=== PATIENT | female | born 1995 | race Caucasian/White ===

== ENCOUNTER 2019-03-06 10:27 | Emergency (ER) | payer OTHER ==
[2019-03-06] MEDS ORDERED: KETOROLAC 30 MG/ML 1 ML VIAL IVP STA (10:56)
[2019-03-06] MEDS ORDERED: SODIUM CHLORIDE 0.9% 1,000 ML IV STA (10:56)
[2019-03-06] MEDS ORDERED: ONDANSETRON 4 MG/2 ML VIAL IVP STA (10:56)
--- NOTE | 2019-03-06 11:01 | ED ---
Abdominal Pain HPI - General Chief Complaint: Abdominal Pain Stated Complaint: abdominal pain Time Seen by Provider: 03/06/19 10:39 Source: patient Mode of arrival: ambulatory Limitations: no limitations - History of Present Illness Initial Comments: Patient is a 23-year-old female presenting to emergency Department with complaints of abdominal pain for 2 days. Patient states she has had diarrhea for the past 3 days as well as intermittent abdominal pain she describes as cramping and sometimes sharp in nature. Patient states she's had a decreased appetite for the past 2 days as well. She admits to a fever yesterday of 100. Patient states she went to urgent care today who sent her to the ER for further evaluation. Patient denies history of abdominal surgeries. Patient does admit to nausea, no vomiting. Patient denies chest pain, shortness of breath, cough. Patient denies being sexually active. She does not drink alcohol. She denies urinary complaints. Patient has no other complaints at this time. Upon arrival to the ER, her vital signs are stable. - Related Data Previous Rx's Medication Instructions Recorded Ondansetron Odt [Zofran Odt] 4 mg PO Q8HR PRN #10 tab 03/06/19 Allergies Allergy/AdvReac Type Severity Reaction Status Date / Time No Known Allergies Allergy Verified 03/06/19 10:33 Review of Systems ROS Statement: Those systems with pertinent positive or pertinent negative responses have been documented in the HPI. ROS Other: All systems not noted in ROS Statement are negative. Past Medical History Past Medical History: No Reported History History of Any Multi-Drug Resistant Organisms: None Reported Past Surgical History: No Surgical Hx Reported Past Psychological History: No Psychological Hx Reported Smoking Status: Never smoker Past Alcohol Use History: None Reported Past Drug Use History: None Reported General Exam - General Exam Comments Initial Comments: GENERAL: Well-appearing, well-nourished and in no acute distress. HEAD: Atraumatic, normocephalic. EYES: Pupils equal round and reactive to light, extraocular movements intact, sclera anicteric, conjunctiva are normal. ENT: TMs normal, nares patent, oropharynx clear without exudates. Moist mucous membranes. NECK: Normal range of motion, supple without lymphadenopathy or JVD. LUNGS: Breath sounds clear to auscultation bilaterally and equal. No wheezes rales or rhonchi. HEART: Regular rate and rhythm without murmurs, rubs or gallops. ABDOMEN: Tender to palpation on umbilical area as well as RUQ. Soft, normoactive bowel sounds. No guarding, no rebound. No masses appreciated. : Deferred EXTREMITIES: Normal range of motion, no pitting or edema. No clubbing or cyanosis. NEUROLOGICAL: Normal speech, normal gait. PSYCH: Normal mood, normal affect. SKIN: Warm, Dry, normal turgor, no rashes or lesions noted. Limitations: no limitations Course Vital Signs 03/06/19 03/06/19 10:31 14:03 Temperature 98.2 F 98.0 F Pulse Rate 71 81 Respiratory 18 16 Rate Blood Pressure 146/98 120/74 O2 Sat by Pulse 98 99 Oximetry Medical Decision Making - Medical Decision Making Patient is a 23-year-old female presenting with abdominal pain, n/v/d 2 days. Vital signs are stable, afebrile. On exam patient has umbilical and right upper quadrant tenderness. Lab work reveals slight leukocytosis 13.4, elevation AST and ALT at 117/128. UA is within normal limits, hCG is negative. KUB shows no acute abnormalities. Ultrasound gallbladder was ordered and shows hepatomegaly, no signs of gallstones, no ductal dilation. Patient was given Toradol, fluids, Zofran reports improvement in her symptoms. I discussed these findings with the patient. Acute hepatitis panel is pending at this time. Patient will continue with increase fluid intake and will be given Zofran as needed for nausea. Patient needs to follow-up with PCP or GI for repeat labs. Patient agrees with this plan of care. Referrals were given for both. Patient is stable for discharge at this time. Return parameters were discussed with the patient she verbalized understanding. Case discussed with Dr. Moore. - Lab Data Result diagrams: 03/06/19 11:22 03/06/19 11:22 Lab Results 03/06/19 03/06/19 03/06/19 Range/Units 11:22 11:22 11:22 WBC 13.4 H (3.8-10.6) k/uL RBC 4.81 (3.80-5.40) m/uL Hgb 13.2 (11.4-16.0) gm/dL Hct 39.4 (34.0-46.0) % MCV 81.9 (80.0-100.0) fL MCH 27.5 (25.0-35.0) pg MCHC 33.5 (31.0-37.0) g/dL RDW 13.1 (11.5-15.5) % Plt Count 315 (150-450) k/uL Neutrophils % 73 % Lymphocytes % 19 % Monocytes % 4 % Eosinophils % 1 % Basophils % 0 % Neutrophils # 9.8 H (1.3-7.7) k/uL Lymphocytes # 2.5 (1.0-4.8) k/uL Monocytes # 0.6 (0-1.0) k/uL Eosinophils # 0.2 (0-0.7) k/uL Basophils # 0.0 (0-0.2) k/uL Sodium 139 (137-145) mmol/L Potassium 3.6 (3.5-5.1) mmol/L Chloride 105 (98-107) mmol/L Carbon Dioxide 26 (22-30) mmol/L Anion Gap 8 mmol/L BUN 7 (7-17) mg/dL Creatinine 0.69 (0.52-1.04) mg/dL Est GFR (CKD-EPI)AfAm >90 (>60 ml/min/1.73 sqM) Est GFR (CKD-EPI)NonAf >90 (>60 ml/min/1.73 sqM) Glucose 90 (74-99) mg/dL Plasma Lactic Acid Mamadou 0.7 (0.7-2.0) mmol/L Calcium 9.2 (8.4-10.2) mg/dL Total Bilirubin 0.4 (0.2-1.3) mg/dL AST 117 H (14-36) U/L ALT 128 H (4-34) U/L Alkaline Phosphatase 116 (38-126) U/L Total Protein 6.9 (6.3-8.2) g/dL Albumin 3.9 (3.5-5.0) g/dL Amylase 42 (30-110) U/L Lipase 28 (23-300) U/L Urine Color Urine Appearance (Clear) Urine pH (5.0-8.0) Ur Specific [place] (1.001-1.035) Urine Protein (Negative) Urine Glucose (UA) (Negative) Urine Ketones (Negative) Urine Blood (Negative) Urine Nitrite (Negative) Urine Bilirubin (Negative) Urine Urobilinogen (<2.0) mg/dL Ur Leukocyte Esterase (Negative) Urine RBC (0-5) /hpf Urine WBC (0-5) /hpf Ur Squamous Epith Cells (0-4) /hpf Urine Bacteria (None) /hpf Urine Mucus (None) /hpf Urine HCG, Qual (Not Detectd) 03/06/19 03/06/19 Range/Units 11:25 11:25 WBC (3.8-10.6) k/uL RBC (3.80-5.40) m/uL Hgb (11.4-16.0) gm/dL Hct (34.0-46.0) % MCV (80.0-100.0) fL MCH (25.0-35.0) pg MCHC (31.0-37.0) g/dL RDW (11.5-15.5) % Plt Count (150-450) k/uL Neutrophils % % Lymphocytes % % Monocytes % % Eosinophils % % Basophils % % Neutrophils # (1.3-7.7) k/uL Lymphocytes # (1.0-4.8) k/uL Monocytes # (0-1.0) k/uL Eosinophils # (0-0.7) k/uL Basophils # (0-0.2) k/uL Sodium (137-145) mmol/L Potassium (3.5-5.1) mmol/L Chloride (98-107) mmol/L Carbon Dioxide (22-30) mmol/L Anion Gap mmol/L BUN (7-17) mg/dL Creatinine (0.52-1.04) mg/dL Est GFR (CKD-EPI)AfAm (>60 ml/min/1.73 sqM) Est GFR (CKD-EPI)NonAf (>60 ml/min/1.73 sqM) Glucose (74-99) mg/dL Plasma Lactic Acid Mamadou (0.7-2.0) mmol/L Calcium (8.4-10.2) mg/dL Total Bilirubin (0.2-1.3) mg/dL AST (14-36) U/L ALT (4-34) U/L Alkaline Phosphatase (38-126) U/L Total Protein (6.3-8.2) g/dL Albumin (3.5-5.0) g/dL Amylase (30-110) U/L Lipase (23-300) U/L Urine Color Yellow Urine Appearance Cloudy H (Clear) Urine pH 5.5 (5.0-8.0) Ur Specific [place] 1.019 (1.001-1.035) Urine Protein Trace H (Negative) Urine Glucose (UA) Negative (Negative) Urine Ketones Negative (Negative) Urine Blood Negative (Negative) Urine Nitrite Negative (Negative) Urine Bilirubin Negative (Negative) Urine Urobilinogen <2.0 (<2.0) mg/dL Ur Leukocyte Esterase Moderate H (Negative) Urine RBC 4 (0-5) /hpf Urine WBC 8 H (0-5) /hpf Ur Squamous Epith Cells 7 H (0-4) /hpf Urine Bacteria Rare H (None) /hpf Urine Mucus Many H (None) /hpf Urine HCG, Qual Not Detected (Not Detectd) Disposition Clinical Impression: Abdominal pain, Elevated liver enzymes Disposition: HOME SELF-CARE Condition: Stable Instructions (If sedation given, give patient instructions): Abdominal Pain (ED) Additional Instructions: Please return to the Emergency Department if symptoms worsen or any other concerns. Follow-up with PCP/GI for repeat lab work. Zofran as needed for nausea. Increase fluid intake. Prescriptions: Ondansetron Odt [Zofran Odt] 4 mg PO Q8HR PRN #10 tab PRN Reason: Nausea Is patient prescribed a controlled substance at d/c from ED?: No Referrals: None,Stated [Primary Care Provider] - 1-2 days Macy Martinez MD [REFERRING] - 1-2 days Yoshi Jon MD [STAFF PHYSICIAN] - 1-2 days
[2019-03-06 11:38] LABS: Basophils % (A) 0 %; Eosinophils # (A) 0.2 k/uL (0-0.7); Eosinophils % (A) 1 %; HCT 39.4 % (34.0-46.0); HGB 13.2 gm/dL (11.4-16.0); Lymphocytes # (A) 2.5 k/uL (1.0-4.8); Lymphocytes % (A) 19 %; MCH 27.5 pg (25.0-35.0); MCHC 33.5 g/dL (31.0-37.0); MCV 81.9 fL (80.0-100.0); Mean Platelet Volume 7.7; Monocytes # (A) 0.6 k/uL (0-1.0); Monocytes % (A) 4 %; Neutrophils # (A) 9.8 k/uL (1.3-7.7); Neutrophils % (A) 73 %; Platelet Count 315 k/uL (150-450); RBC 4.81 m/uL (3.80-5.40); RDW 13.1 % (11.5-15.5); WBC 13.4 k/uL (3.8-10.6)
[2019-03-06 11:40] LABS: Appearance,Urine Cloudy (Clear); Bacteria,Urine Rare /hpf; Bilirubin,Urine Negative (Negative); Blood,Urine Negative (Negative); Color,Urine Yellow; Glucose,Urine (UA) Negative (Negative); Ketones,Urine Negative (Negative); Leukocyte Esterase,Urine Moderate (Negative); Mucus,Urine Many /hpf; Nitrite,Urine Negative (Negative); PH, Urine 5.5 (5.0-8.0); Protein,Urine Trace (Negative); RBC,Urine 4 /hpf (0-5); Specific Gravity,Urine 1.019 (1.001-1.035); Squamous Epithelial Cell,Urine 7 /hpf (0-4); Urobilinogen,Urine <2.0 mg/dL (<2.0); WBC,Urine 8 /hpf (0-5)
[2019-03-06 11:53] LABS: ALT 128 U/L (4-34); AST 117 U/L (14-36); African American GFR (CKD) >90 (>60 ml/min/1.73 sqM); Albumin 3.9 g/dL (3.5-5.0); Alkaline Phosphatase 116 U/L (38-126); Amylase 42 U/L (30-110); Anion Gap 8 mmol/L; Blood Urea Nitrogen 7 mg/dL (7-17); Calcium 9.2 mg/dL (8.4-10.2); Carbon Dioxide 26 mmol/L (22-30); Chloride 105 mmol/L (98-107); Glucose 90 mg/dL (74-99); Non-African American GFR(CKD) >90 (>60 ml/min/1.73 sqM); Potassium 3.6 mmol/L (3.5-5.1); Sodium 139 mmol/L (137-145); Total Bilirubin 0.4 mg/dL (0.2-1.3); Total Protein 6.9 g/dL (6.3-8.2)
--- NOTE | 2019-03-06 12:11 | XR ---
EXAMINATION TYPE: XR KUB DATE OF EXAM: 03/06/2019 12:03 PM CLINICAL HISTORY: Abdominal pain for 3 days. TECHNIQUE: Two Upright KUB images of the abdomen are obtained. COMPARISON: Abdominal x-ray 1997. FINDINGS: Some paucity of bowel gas. Scattered gas in nondistended stomach as well as small and large bowel loops throughout the abdomen and pelvis. There is no visceromegaly, pneumoperitoneum, or abnor mal calcification appreciated. The lung bases are clear. Slight levoconvex scoliotic curvature center ed at L3 level. IMPRESSION: Overall nonspecific strongly favor nonobstructive bowel gas pattern.
--- NOTE | 2019-03-06 13:08 | US ---
EXAMINATION TYPE: US gallbladder DATE OF EXAM: 03/06/2019 COMPARISON: NONE CLINICAL HISTORY: right abdominal pain. pain and diahhrea EXAM MEASUREMENTS: Liver Length: 20.6 cm Gallbladder Wall: .3 cm CBD: .3 cm Right Kidney: 9.4 x 4.3 x 5.2 cm Pancreas: Obscured by bowel gas Liver: Increased attenuation hepatomegaly 20.6cm. Gallbladder: wnl Evidence for sonographic Porter's sign: No CBD: wnl Right Kidney: wnl Hepatomegaly with heterogeneous hyperechoic liver. Evaluation for focal masses suboptimal. No ductal dilatation. Gallbladder shows no shadowing gallstones. IMPRESSION: Hepatomegaly and diffuse fatty infiltration of liver. No acute findings are evident. Subo ptimal evaluation of pancreas noted.
[2019-03-06 14:04] VITALS: BP 120/74; PULSE 81; RESP 16; TEMP 98
== END 2019-03-06 14:04 | disposition home or self-care (01) ==
LOC: EC 10:27
DX: R74.8 Abnormal levels of other serum enzymes (principal); R10.9 Unspecified abdominal pain; D72.829 Elevated white blood cell count, unspecified; R74.0 Nonspecific elevation of levels of transaminase and lactic acid dehydrogenase [LDH]; R16.0 Hepatomegaly, not elsewhere classified; R11.0 Nausea; R63.8 Other symptoms and signs concerning food and fluid intake
CPT/HCPCS: 36415; 80053; 82150; 83605; 83690; 85025; 81001; 81025; 74018; 76705; 99284; 96374; 96375; 96361; J2405; J1885

== ENCOUNTER 2021-01-01 13:08 | Emergency (ER) | payer OTHER ==
[2021-01-01 15:36] VITALS: TEMP 98.4
[2021-01-01] MEDS ORDERED: IPRATROPIUM-ALBUTEROL 3 ML NEB INHALATION STA (16:41)
[2021-01-01] MEDS ORDERED: ALBUTEROL HFA INHALER INHALATION STA (16:41)
[2021-01-01] MEDS ORDERED: methylPREDNISolone SOD SUCCI 125 MG/2 ML VIAL IV STA (16:41)
[2021-01-01 17:16] LABS: HCG,Qualitative Serum Detected
--- NOTE | 2021-01-01 17:16 | ED ---
General Adult HPI - General Chief complaint: Shortness of Breath Stated complaint: [place] Time Seen by Provider: 01/01/21 15:49 Source: patient, family, RN notes reviewed, old records reviewed Mode of arrival: ambulatory Limitations: no limitations - History of Present Illness Initial comments: I evaluated the patient when she was placed in a room. Patient is a 25-year-old female with no significant past medical history who presents emergency Department complaining of a nonproductive cough as well as wheezing with intermittent shortness of breath over the last 3 days. She denies any sick contacts. She was not vaccinated for COVID-19. Denies any abdominal pain, nausea, vomiting. Denies any diarrhea. Denies any urinary complaints. Does endorse having an episode of vaginal bleeding earlier today. She states it is possible she is . She denies any vaginal discharge otherwise her concern for STI's. She presents emergency department over concern for possible viral syndrome. She denies any chest pain, fevers, sick contacts. Denies any headache, dizziness otherwise. His no other acute complaints at this time. Patient presents over concern for possible upper respiratory infection. - Related Data Previous Rx's Medication Instructions Recorded Ondansetron Odt [Zofran Odt] 4 mg PO Q8HR PRN #10 tab 03/06/19 Albuterol Inhaler [Ventolin Hfa 1 puff INHALATION RT-TID #8 gm 01/01/21 Inhaler] Vit,Calc78/Iron/Folic 1 each PO DAILY 30 Days #30 tablet 01/01/21 [Pretab 29 mg-1 mg Tablet] predniSONE [Deltasone] 40 mg PO DAILY 5 Days #10 tab 01/01/21 Allergies Allergy/AdvReac Type Severity Reaction Status Date / Time No Known Allergies Allergy Verified 01/01/21 15:34 Review of Systems ROS Statement: Those systems with pertinent positive or pertinent negative responses have been documented in the HPI. Review of Systems: CONST: Denies fever EYES: Denies blurry vision ENT: Denies nasal congestion C/V: Denies Chest pain RESP: Endorses cough, wheezing GI: Denies abdominal pain : Endorses episode of vaginal bleeding SKIN: Denies rash. MSK: Denies joint pain. NEURO: Denies headache ROS Other: All systems not noted in ROS Statement are negative. Past Medical History Past Medical History: No Reported History History of Any Multi-Drug Resistant Organisms: None Reported Past Surgical History: No Surgical Hx Reported Past Psychological History: No Psychological Hx Reported Smoking Status: Never smoker Past Alcohol Use History: None Reported Past Drug Use History: None Reported General Exam - General Exam Comments Initial Comments: General: Appears in no acute distress. HEAD: Normal with no signs of head trauma. EYES: PERRLA, EOMI, conjunctiva normal, no discharge. Pupils are 3 mm and equal bilaterally. ENT: Hearing grossly intact, normal oropharynx. RESPIRATORY: Patient has bilateral end expiratory wheezing without any obvious rales or rhonchi. C/V: Regular rate and rhythm. S1 and S2 auscultated, no edema, peripheral pulses 2+ and intact throughout ABD: Abd is soft, nontender, nondistended EXT: Normal range of motion, no obvious deformity SKIN: No rashes or lesions observed on exposed skin. NEURO: Alert and oriented 4. Limitations: no limitations Course Vital Signs 01/01/21 01/01/21 01/01/21 15:34 16:35 19:51 Temperature 98.4 F Pulse Rate 89 82 86 Respiratory 18 22 20 Rate Blood Pressure 156/81 123/46 141/73 O2 Sat by Pulse 95 99 96 Oximetry Medical Decision Making - Medical Decision Making Based on the patient's presentation and physical exam, I would like to admit assess if the patient is . She did not some vaginal bleeding therefore we will also check basic laboratory studies including CBC. Type and screen will be obtained and sent. She is no abdominal pain at this time. Patient's respiratory exam revealed wheezing. She has not chest pain. We will swab her for Covid, flu, RSV and provide her with prednisone as well as a breathing treatment while here in the department and assess for improvement. She is not hypoxic at this time. Patient was in agreement this plan. Patient's chest x-ray revealed no acute cardiopulmonary process. Laboratory studies were remarkable for a mildly elevated leukocytosis of 15.6. Blood to lites are unremarkable. Patient is , and quantitative beta hCG was nearly 8000. Flu, RSV, Covid is negative.Patient's blood type is O+ and therefore she does not require RhoGAM. Due to patient being as well as her vaginal bleeding, we will obtain a pelvic ultrasound to assess for definitive IUP. On reevaluation, patient's breathing is improved wheezing is improved. She states she feels better. I informed her the results of her initial laboratory studies and that she is likely expressing a viral syndrome probably causing his bronchospastic reaction without any history of asthma or COPD. She is a never smoker. She was in agreement this plan. Patient's pelvic ultrasound revealed a intrauterine gestational sac with yolk sac that corresponds to 5 weeks 4 days. Recommend follow-up exam to confirm a living fetus. I informed the patient results of her imaging. We discussed the need for follow-up with [employer], and she states she has one already that she will follow up with. She otherwise is stable at this time. I do believe it is safer to be discharged home. She was in agreement this plan. I discussed she is likely experiencing a threatened miscarriage/ at this time. I will provide the patient with a prescription for vitamins, albuterol inhaler, prednisone 40 mg for 5 days daily. I instructed the patient to follow up with their PCP in the next 3 days . I explained that the patient should return to the emergency department if they experience any worsening symptoms. Strict return precautions were discussed with the patient. The patient expressed understanding of these instructions. I answered all questions that the patient had. The patient was discharged home in good condition with their prescriptions and follow up information. - Lab Data Result diagrams: 01/01/21 18:57 01/01/21 16:50 Lab Results 01/01/21 01/01/21 01/01/21 Range/Units 16:50 16:50 17:54 WBC (3.8-10.6) k/uL RBC (3.80-5.40) m/uL Hgb (11.4-16.0) gm/dL Hct (34.0-46.0) % MCV (80.0-100.0) fL MCH (25.0-35.0) pg MCHC (31.0-37.0) g/dL RDW (11.5-15.5) % Plt Count (150-450) k/uL MPV Neutrophils % % Lymphocytes % % Monocytes % % Eosinophils % % Basophils % % Neutrophils # (1.3-7.7) k/uL Lymphocytes # (1.0-4.8) k/uL Monocytes # (0-1.0) k/uL Eosinophils # (0-0.7) k/uL Basophils # (0-0.2) k/uL Sodium 135 L (137-145) mmol/L Potassium 3.9 (3.5-5.1) mmol/L Chloride 104 (98-107) mmol/L Carbon Dioxide 22 (22-30) mmol/L Anion Gap 9 mmol/L BUN 13 (7-17) mg/dL Creatinine 0.50 L (0.52-1.04) mg/dL Est GFR (CKD-EPI)AfAm >90 (>60 ml/min/1.73 sqM) Est GFR (CKD-EPI)NonAf >90 (>60 ml/min/1.73 sqM) Glucose 106 H (74-99) mg/dL Calcium 9.0 (8.4-10.2) mg/dL Magnesium 1.9 (1.6-2.3) mg/dL Total Bilirubin 0.2 (0.2-1.3) mg/dL AST 29 (14-36) U/L ALT 23 (4-34) U/L Alkaline Phosphatase 113 (38-126) U/L Total Protein 7.0 (6.3-8.2) g/dL Albumin 3.8 (3.5-5.0) g/dL HCG, Qual Detected HCG, Quant 7971.5 mIU/mL Influenza Type A (PCR) Not Detected (Not Detectd) Influenza Type B (PCR) Not Detected (Not Detectd) RSV (PCR) Not Detected (Not Detectd) SARS-CoV-2 (PCR) Not Detected (Not Detectd) Blood Type Blood Type Recheck Bld Type Recheck Status Antibody Screen Spec Expiration Date 01/01/21 01/01/21 Range/Units 18:57 19:04 WBC 18.6 H (3.8-10.6) k/uL RBC 4.41 (3.80-5.40) m/uL Hgb 12.1 (11.4-16.0) gm/dL Hct 37.6 (34.0-46.0) % MCV 85.2 (80.0-100.0) fL MCH 27.5 (25.0-35.0) pg MCHC 32.3 (31.0-37.0) g/dL RDW 14.7 (11.5-15.5) % Plt Count 254 (150-450) k/uL MPV 8.4 Neutrophils % 79 % Lymphocytes % 13 % Monocytes % 4 % Eosinophils % 2 % Basophils % 0 % Neutrophils # 14.7 H (1.3-7.7) k/uL Lymphocytes # 2.3 (1.0-4.8) k/uL Monocytes # 0.8 (0-1.0) k/uL Eosinophils # 0.4 (0-0.7) k/uL Basophils # 0.1 (0-0.2) k/uL Sodium (137-145) mmol/L Potassium (3.5-5.1) mmol/L Chloride (98-107) mmol/L Carbon Dioxide (22-30) mmol/L Anion Gap mmol/L BUN (7-17) mg/dL Creatinine (0.52-1.04) mg/dL Est GFR (CKD-EPI)AfAm (>60 ml/min/1.73 sqM) Est GFR (CKD-EPI)NonAf (>60 ml/min/1.73 sqM) Glucose (74-99) mg/dL Calcium (8.4-10.2) mg/dL Magnesium (1.6-2.3) mg/dL Total Bilirubin (0.2-1.3) mg/dL AST (14-36) U/L ALT (4-34) U/L Alkaline Phosphatase (38-126) U/L Total Protein (6.3-8.2) g/dL Albumin (3.5-5.0) g/dL HCG, Qual HCG, Quant mIU/mL Influenza Type A (PCR) (Not Detectd) Influenza Type B (PCR) (Not Detectd) RSV (PCR) (Not Detectd) SARS-CoV-2 (PCR) (Not Detectd) Blood Type O Positive Blood Type Recheck No Previous Record Bld Type Recheck Status CABO Indicated Antibody Screen NEGATIVE Spec Expiration Date 01/04/20212303 - EKG Data -: EKG Interpreted by Me EKG Comments: 12-lead Electrocardiogram Interpretation Note EKG was reviewed and interpreted by myself. 12-lead ECG performed at 1711 is in terpreted by me as revealing normal sinus rhythm at a rate of 90 beats per minute. [place] is normal. AL interval is 118 ms, QRS duration is 80 ms, QTc is 452 ms.. There were no ST or T wave abnormalities to suggest myocardial ischemia or injury. R wave progression across the precordium was satisfactory. By my interpretation this EKG is non-diagnostic for acute ischemia. Disposition Clinical Impression: Threatened , Acute viral syndrome, Bronchospasm, acute Disposition: HOME SELF-CARE Condition: Fair Instructions (If sedation given, give patient instructions): Threatened Miscarriage (ED) Prescriptions: predniSONE [Deltasone] 40 mg PO DAILY 5 Days #10 tab Vit,Calc78/Iron/Folic [Pretab 29 mg-1 mg Tablet] 1 each PO DAILY 30 Days #30 tablet Albuterol Inhaler [Ventolin Hfa Inhaler] 1 puff INHALATION RT-TID #8 gm Is patient prescribed a controlled substance at d/c from ED?: No Referrals: Geovanni Sanabria MD [Primary Care Provider] - 1-2 days
[2021-01-01 17:18] LABS: ALT 23 U/L (4-34); AST 29 U/L (14-36); African American GFR (CKD) >90 (>60 ml/min/1.73 sqM); Albumin 3.8 g/dL (3.5-5.0); Alkaline Phosphatase 113 U/L (38-126); Anion Gap 9 mmol/L; Blood Urea Nitrogen 13 mg/dL (7-17); Carbon Dioxide 22 mmol/L (22-30); Chloride 104 mmol/L (98-107); Glucose 106 mg/dL (74-99); Magnesium 1.9 mg/dL (1.6-2.3); Non-African American GFR(CKD) >90 (>60 ml/min/1.73 sqM); Potassium 3.9 mmol/L (3.5-5.1); Sodium 135 mmol/L (137-145); Total Bilirubin 0.2 mg/dL (0.2-1.3)
--- NOTE | 2021-01-01 18:07 | XR ---
EXAMINATION TYPE: XR chest 2V DATE OF EXAM: 01/01/2021 COMPARISON: NONE HISTORY: Short of breath TECHNIQUE: 2 views FINDINGS: Heart and mediastinum are normal. Lungs are clear. Diaphragm is normal. Bony thorax appears normal. IMPRESSION: Normal chest.
[2021-01-01 19:02] LABS: Basophils # (A) 0.1 k/uL (0-0.2); Basophils % (A) 0 %; Eosinophils # (A) 0.4 k/uL (0-0.7); Eosinophils % (A) 2 %; HCT 37.6 % (34.0-46.0); HGB 12.1 gm/dL (11.4-16.0); Lymphocytes # (A) 2.3 k/uL (1.0-4.8); Lymphocytes % (A) 13 %; MCH 27.5 pg (25.0-35.0); MCHC 32.3 g/dL (31.0-37.0); MCV 85.2 fL (80.0-100.0); Mean Platelet Volume 8.4; Monocytes # (A) 0.8 k/uL (0-1.0); Monocytes % (A) 4 %; Neutrophils # (A) 14.7 k/uL (1.3-7.7); Neutrophils % (A) 79 %; Platelet Count 254 k/uL (150-450); RBC 4.41 m/uL (3.80-5.40); RDW 14.7 % (11.5-15.5); WBC 18.6 k/uL (3.8-10.6)
[2021-01-01 19:52] VITALS: BP 141/73; PULSE 86; RESP 20
--- NOTE | 2021-01-01 20:59 | US ---
EXAMINATION TYPE: Transabdominal DATE OF EXAM: 01/01/2021 8:18 PM COMPARISON: NONE CLINICAL HISTORY: , vaginal bleeding. Vaginal bleeding. . EXAM PERFORMED: Transvaginal (TV) and Transabdominal (TA) EXAM MEASUREMENTS: GESTATIONAL AGE / DATING Physician Established: Not yet established. Dates by LMP: (7 weeks/ 3 days) EDC: 08/17/2021 Dates by First Scan: This is first scan. Dates by Current Scan for: (5 weeks/2 days) EDC: 09/01/2021 Gestational sac and yolk sac seen at this time. MATERNAL ANATOMY Uterus: 9.1 x 6.3 x 4.9 cm. Anteverted. Complex fluid-appearing area seen in cervix: 2.3 x 0.4 x 0.4 cm. Right Ovary: 3.1 x 1.9 x 2.0 cm. Seen TA only. Left Ovary: Not visualized. Post CDS / Adnexa: Appear wnl,. Presence of free fluid: None seen. Presence of corpus luteal cyst: Not seen. Presence of subchorionic bleed: Heterogeneous, hypoechoic area seen adjacent to the gestational sac: 1.6 x 0.7 x 0.6 cm. GESTATION / SURVEY CRL: Not visualized. MSD: 1.23 cm. (5 weeks/2 days) Yolk Sac (normal less than 6mm): 3.1 mm. IUP: Gestational sac and yolk sac seen at this time. Date of LMP: 11/10/2020. Beta HcG (if available): 7,971.5 mIU/mL IMPRESSION: There is tiny intrauterine gestational sac that corresponds to 5 weeks and 4 days gestation. There is a yolk sac.. No adnexal mass. Follow-up exam recommended in 10 days to confirm a living fetus.
== END 2021-01-01 21:27 | disposition home or self-care (01) ==
LOC: EC 13:08
DX: O20.0 Threatened abortion (principal); O99.511 Diseases of the respiratory system complicating pregnancy, first trimester; J98.01 Acute bronchospasm; O98.511 Other viral diseases complicating pregnancy, first trimester; Z3A.01 Less than 8 weeks gestation of pregnancy; B34.9 Viral infection, unspecified
CPT/HCPCS: 36415; 94640; 93005; 86900; 86901; 80053; 83735; 85025; 86850; 84703; 84702; 87636; 71046; 76801; 76817; 96374; 99285; J2930

== ENCOUNTER → 2021-09-12 | Outpatient (CLI) | payer OTHER ==
[2021-09-12 15:16] VITALS: BP 129/86; PULSE 69; TEMP 98.5; BMI 51.9
--- NOTE | 2021-09-12 15:44 | P.HPBAR ---
Bariatric H&P - History & Physicial H&P Date: 09/12/21 History & Physicial: Visit/CC: new pt. Patient initial contact: Initial weight: Initial weight in pounds: Height: 5 ft 5.5 in Initial BMI: Last weight: Current weight: 143.789 kg Current weight in pounds: 317.00 Current BMI: 51.9 [place] body weight (based on NIH guidelines): 57.833 kg Excess body weight loss: The patient is a 26 year-old F who presents for Bariatric Assessment. Looking into bypass. Highest weight is present. Nurtisystem, whole 30, no prescription drugs for weight loss. Dad has troubles with weight. No stomach or esophageal cancerr. No moderate heartburn. No dysphagia. No DVTs or PEs. No family hx of blood clots. Does not tolerate veggies except carrots and green beans. No back, hip pain that is moderate. No knee. No ankles or feet. She snores. Still has fatigue with awake--look into sleep apnea. She has elevated liverr enzymes. She has fatty liver diease. Needs [employer]. She is looking into the bypass. She has elevated WBC. SHe has not had a period on 3+ years. Mother at bedside about safety of and children. Questions addressed. Past Medical History Past Medical History: No Reported History Additional Past Medical History / Comment(s): "pre-diabetic" History of Any Multi-Drug Resistant Organisms: None Reported Past Surgical History: No Surgical Hx Reported Past Anesthesia/Blood Transfusion Reactions: No Reported Reaction Past Psychological History: No Psychological Hx Reported Smoking Status: Never smoker Past Alcohol Use History: None Reported Past Drug Use History: None Reported Surgical - Exam Vital Signs Temp Pulse BP 98.5 F 69 129/86 09/12/21 15:10 09/12/21 15:10 09/12/21 15:10 Bariatric Checklist Checklist: Plan: Checklist: EGD: 1. Hiatal hernia: 2. H. Pylori: HgbA1c: Vitamin D: Smoking: Never smoker Primary care physician referral: Dr. Sanabria Psychiatry clearance: Cardiology clearance: Sleep study: Diet journal: VTE risk score: VTE risk level: Rehab needs at discharge:
== END | disposition home or self-care (01) ==
LOC: BARWHC3 14:24
PROVIDERS: ATTEND Surgery Plastic and Reconstructive Surgery
DX: Z48.815 Encounter for surgical aftercare following surgery on the digestive system (principal)
CPT/HCPCS: 99212

== ENCOUNTER → 2021-09-27 | Outpatient (CLI) | payer OTHER ==
[2021-09-27 11:44] LABS: INR 0.9 (<1.2); Partial Thromboplastin Time 24.6 sec (22.0-30.0); Prothrombin Time 9.8 sec (9.0-12.0)
[2021-09-27 14:19] LABS: Basophils % (A) 0.8 %; Eosinophils # (A) 0.26 X 10*3/uL (0.04-0.35); HCT 41.5 % (37.2-46.3); HGB 12.7 g/dL (12.0-15.0); Immature Grans, Automated 0.7 %; Lymphocytes # (A) 3.01 X 10*3/uL (0.90-5.00); MCH 25.2 pg (27.0-32.0); MCHC 30.6 g/dL (32.0-37.0); MCV 82.5 fL (80.0-97.0); Mean Platelet Volume 10.1 fL (9.5-12.2); Monocytes # (A) 0.53 X 10*3/uL (0.20-1.00); Monocytes % (A) 4.1 %; NRBC Per 100 WBC 0 /100 WBCS (0.0-0.0); Neutrophils # (A) 9.07 X 10*3/uL (1.80-7.70); Neutrophils % (A) 69.4 %; Platelet Count 368 X 10*3/uL (140-440); RBC 5.03 X 10*6/uL (4.10-5.20); RDW 14.7 % (11.5-14.5); WBC 13.06 X 10*3/uL (4.50-10.00)
[2021-09-27 14:57] LABS: Phosphorus 3.4 mg/dL (2.4-5.1)
[2021-09-27 14:58] LABS: % Iron Saturation 9.62 (12.00-45.00); ALT 53 U/L (8-44); AST 36 U/L (13-35); African American GFR (CKD) 149.1 (60.0-200.0); Albumin 4.2 g/dL (3.8-4.9); Albumin/Globulin Ratio 1.34 (1.60-3.17); Alkaline Phosphatase 129 U/L (41-126); BUN/Creat Ratio 29.57 Ratio (12.00-20.00); Blood Urea Nitrogen 17.3 mg/dL (9.0-27.0); Calcium 9.4 mg/dL (8.7-10.3); Carbon Dioxide 21.3 mmol/L (20.0-27.5); Chloride 103 mmol/L (96-109); Globulin 3.1 g/dL (1.6-3.3); Glucose 92 mg/dL (70-110); Iron 40 ug/dL (50-170); Non-African American GFR(CKD) 128.6 (60.0-200.0); Potassium 4.7 mmol/L (3.5-5.5); Sodium 139 mmol/L (135-145); Total Iron Binding Capacity 416 ug/dL (228-460); Total Protein 7.3 g/dL (6.2-8.2)
[2021-09-27 15:03] LABS: Chol/HDL Ratio 4.29 Ratio; LDL Cholesterol,Calculated 117.4 mg/dL (0.0-131.0); Prealbumin 19.8 mg/dL (18.0-42.0)
[2021-10-01 06:38] LABS: Vitamin A 41 ug/dL (38-106)
[2021-10-01 06:58] LABS: Vit B1(Thiamine) 91 ug/L (38-122)
[2021-10-01 08:52] LABS: Cotinine <2.0 ng/mL (<2.0); Nicotine <2.0 ng/mL (<2.0)
[2021-10-03 11:35] LABS: Zinc, Serum 78 ug/dL (60-130)
== END | disposition home or self-care (01) ==
LOC: LABPAT 10:24
PROVIDERS: ATTEND Surgery Plastic and Reconstructive Surgery
DX: E66.01 Morbid (severe) obesity due to excess calories (principal); Z71.51 Drug abuse counseling and surveillance of drug abuser; E89.1 Postprocedural hypoinsulinemia; D50.8 Other iron deficiency anemias; D50.9 Iron deficiency anemia, unspecified; K91.2 Postsurgical malabsorption, not elsewhere classified; E44.0 Moderate protein-calorie malnutrition; E44.1 Mild protein-calorie malnutrition; E45 Retarded development following protein-calorie malnutrition; E55.9 Vitamin D deficiency, unspecified; E46 Unspecified protein-calorie malnutrition; K74.1 Hepatic sclerosis; N19 Unspecified kidney failure; T56.894A Toxic effect of other metals, undetermined, initial encounter; K50.90 Crohn's disease, unspecified, without complications
CPT/HCPCS: 84255; 84134; 84425; 80061; 80053; 82607; 82728; 82525; 82746; 83540; 83550; 83735; 84100; 84443; 84590; 84630; 85025; 85610; 85730; 82306; 83970; 83036; 80307; 93005; G0480; 80323

== ENCOUNTER → 2021-12-17 | Day surgery (SDC) | payer OTHER ==
[~2021-12-17] MED LIST: LACTATED RINGERS 1,000 ML IV SCH; LIDOCAINE 1% (10MG/ML) FOR IV START INTRADERMA PRN; LIDOCAINE 2% INJ 20 MG/ML (2 ML VIAL) ONE; MIDAZOLAM 2 MG/2 ML VIAL ONE; PROPOFOL 10 MG/ML 20 ML VIAL IV ONE
--- NOTE | 2021-12-17 07:36 | P.GSHP ---
History of Present Illness H&P Date: 12/17/21 CHIEF COMPLAINT: GERD HISTORY OF PRESENT ILLNESS: The patient is a 26-year-old female who presents reports gastroesophageal reflux disease. Upper endoscopy was offered for further evaluation and management. PAST MEDICAL HISTORY: Please see list. PAST SURGICAL HISTORY: Please see list. MEDICATIONS: Please see list. ALLERGIES: Please see list. SOCIAL HISTORY: No illicit drug use FAMILY HISTORY: No reports of Crohn disease or ulcerative colitis. REVIEW OF ORGAN SYSTEMS: CONSTITUTIONAL: No reports of fevers or chills. GI: Denies any blood in stools or constipation. PHYSICAL EXAM: VITAL SIGNS: Stable GENERAL: Well-developed and pleasant in no acute distress. HEENT: No scleral icterus. Extraocular movements grossly intact. Moist buccal mucosa. NECK: Supple without lymphadenopathy. CHEST: Unlabored respirations. Equal bilateral excursions. CARDIOVASCULAR: Regular rate and rhythm. Distal 2+ pulses. ABDOMEN: Soft, nondistended. MUSCULOSKELETAL: No clubbing, cyanosis, or edema. ASSESSMENT: 1. Gastroesophageal reflux disease PLAN: 1. Recommend proceeding with an upper endoscopy Past Medical History Past Medical History: Diabetes Mellitus, Sleep Apnea/CPAP/BIPAP Additional Past Medical History / Comment(s): "pre-diabetic", new dx. sleep apnea, using CPAP, fatty liver, lower back pain History of Any Multi-Drug Resistant Organisms: None Reported Past Surgical History: Adenoidectomy, Tubal Ligation Past Anesthesia/Blood Transfusion Reactions: No Reported Reaction Smoking Status: Never smoker Medications and Allergies Home Medications Medication Instructions Recorded Confirmed Type No Known Home Medications 09/12/21 12/13/21 History Allergies Allergy/AdvReac Type Severity Reaction Status Date / Time No Known Allergies Allergy Verified 12/13/21 15:11
[2021-12-17 07:57] VITALS: TEMP 97.5
[2021-12-17 08:15] LABS: Glucose,Whole Blood 97 mg/dL (70-110)
--- NOTE | 2021-12-17 08:33 | P.PCN ---
Date of Procedure: 12/17/21 Description of Procedure: PREOPERATIVE DIAGNOSIS: Gastroesophageal reflux disease. Morbid obesity. POSTOPERATIVE DIAGNOSIS: Gastroesophageal reflux disease with erosive esophagitis Morbid obesity. Gastritis. OPERATION: Esophagogastroduodenoscopy with biopsies along antrum and duodenum SURGEON: Keara Ambrose MD ANESTHESIA: MAC. INDICATIONS: The patient is a 26-year-old female who presents with reflux disease. Benefits and risks of the procedure were described. Informed consent was obtained. DESCRIPTION: The patient was brought into the endoscopy suite and laid in the left lateral decubitus position. An Olympus gastroscope was passed along the posterior oropharynx down to the distal esophagus where the squamocolumnar junction was encountered at 38 cm from the incisors. The stomach was entered and no bile reflux was found. Additional findings are listed below. Biopsies with cold forceps were obtained of the antrum. The first through third portion of the duodenum was examined. Retroflexion of the scope confirmed Hill grade 2 lower esophageal valve. The squamocolumnar junction demonstrated LA grade B erosive esophagitis. The stomach was desufflated. The patient tolerated the procedure well. FINDINGS: Squamocolumnar junction 38 cm from the incisors. Diaphragmatic hiatus at 38 cm. Hill grade 2 lower esophageal valve. LA grade A erosive esophagitis. Cold forceps biopsies obtained of duodenum Chronic gastritis RECOMMENDATIONS: Upper endoscopy as needed. Plan - Discharge Summary Discharge Rx Participant: No New Discharge Prescriptions: Continue No Known Home Medications Discharge Medication List No Known Home Medications 09/12/21 [History] Follow up Appointment(s)/Referral(s): Bariatric [place] [facility], [place] [NON-STAFF] - 01/02/22 Patient Instructions/Handouts: Gastritis (DC) Discharge Disposition: HOME SELF-CARE
[2021-12-17 08:49] VITALS: BP 103/62; PULSE 78; RESP 16
== END | disposition home or self-care (01) ==
LOC: ORWHC2ENDO 07:22
PROVIDERS: ATTEND Surgery Plastic and Reconstructive Surgery
DX: K21.00 Gastro-esophageal reflux disease with esophagitis, without bleeding (principal); K29.50 Unspecified chronic gastritis without bleeding; K29.80 Duodenitis without bleeding; E11.9 Type 2 diabetes mellitus without complications; G47.33 Obstructive sleep apnea (adult) (pediatric); K76.0 Fatty (change of) liver, not elsewhere classified; E66.01 Morbid (severe) obesity due to excess calories; Z68.42 Body mass index [BMI] 45.0-49.9, adult; Z98.51 Tubal ligation status; Z90.89 Acquired absence of other organs
CPT/HCPCS: 81025; 88305; 43239; J2250; J2704; J2001

== ENCOUNTER → 2022-02-08 | Outpatient (CLI) | payer OTHER ==
--- NOTE | 2022-02-08 12:28 | US ---
EXAMINATION TYPE: US liver DATE OF EXAM: 02/08/2022 COMPARISON: US CLINICAL HISTORY: R94.5 ABNORMAL RESULTS OF LIVER FUNCTION STUDIES. Abnormal results of liver functio n studies. TECHNIQUE: Multiple sonographic images of the right upper quadrant are obtained. FINDINGS: EXAM MEASUREMENTS: Liver Length: 19.3 cm Gallbladder Wall: 0.24 cm CBD: Obscured Right Kidney: 12.3 x 5.9 x 4.5 cm SEAFOOD MANAGER NOTES: Exam is very limited due to large body habitus and overlying bowel gas. Pancreas: Not well seen. Liver: Very limited, heterogeneous, enlarged with increased echogenicity and attenuation. Gallbladder: Appears distended measuring 10.2 cm in length. Evidence for sonographic Porter's sign: No CBD: Obscured Right Kidney: No hydronephrosis or masses seen, slightly limited visibility of lower pole. Measure s upper limits versus minimally enlarged. IMPRESSION: 1. Hepatomegaly. Mild fatty infiltration of liver is present.
== END | disposition home or self-care (01) ==
LOC: RADUSWWP 06:51
PROVIDERS: ATTEND Surgery Plastic and Reconstructive Surgery
DX: K76.0 Fatty (change of) liver, not elsewhere classified (principal); R16.0 Hepatomegaly, not elsewhere classified; R94.5 Abnormal results of liver function studies
CPT/HCPCS: 76705

== ENCOUNTER → 2022-03-11 | Outpatient (CLI) | payer OTHER ==
[2022-03-11 10:42] VITALS: BMI 51.5
== END ==
LOC: BARWHC3 08:34
PROVIDERS: ATTEND Surgery Plastic and Reconstructive Surgery
DX: E66.01 Morbid (severe) obesity due to excess calories (principal); Z71.3 Dietary counseling and surveillance; Z68.43 Body mass index [BMI] 50.0-59.9, adult
CPT/HCPCS: 97804

== ENCOUNTER → 2022-05-24 | Outpatient (CLI) | payer OTHER ==
--- NOTE | 2022-05-24 10:59 | US ---
EXAMINATION TYPE: US liver DATE OF EXAM: 05/24/2022 COMPARISON: 02/08/2022, 07/17/2021 CLINICAL HISTORY: R94.5 Abnormal liver function studies. TECHNIQUE: Multiple sonographic images of the right upper quadrant are obtained. FINDINGS: EXAM MEASUREMENTS: Liver Length: 16.7 cm Gallbladder Wall: 0.2 cm CBD: 0.3 cm Right Kidney: 11.8 x 4.5 x 5.2 cm Pancreas: Tail obscured by overlying bowel gas Liver: Increased attenuation, decreased visualization of vessels suggestive of fatty infiltrate Gallbladder: wnl Evidence for sonographic Porter's sign: No CBD: Limited by liver pathology, visualized portions are unremarkable. Right Kidney: Limited by liver pathology, visualized portions are unremarkable. IMPRESSION: 1. Abnormal pattern of the liver to be associated with diffuse hepatocellular disease including hepat itis or cirrhosis. Liver measures approximately 17 cm on today's exam and previously measured approxi mately 19 cm.
== END | disposition home or self-care (01) ==
LOC: RADUSWWP 10:08
PROVIDERS: ATTEND Surgery Plastic and Reconstructive Surgery
DX: K76.89 Other specified diseases of liver (principal); R94.5 Abnormal results of liver function studies
CPT/HCPCS: 76705

== ENCOUNTER → 2022-06-14 | Outpatient (CLI) | payer OTHER ==
[2022-06-14 11:23] LABS: Basophils # (A) 0.07 X 10*3/uL (0.00-0.10); Basophils % (A) 0.6 %; Eosinophils # (A) 0.21 X 10*3/uL (0.04-0.35); Eosinophils % (A) 1.9 %; HCT 42.1 % (37.2-46.3); HGB 12.9 g/dL (12.0-15.0); Immature Grans, Automated 0.4 %; Lymphocytes # (A) 3.38 X 10*3/uL (0.90-5.00); Lymphocytes % (A) 30.2 %; MCH 25.3 pg (27.0-32.0); MCHC 30.6 g/dL (32.0-37.0); MCV 82.7 fL (80.0-97.0); Mean Platelet Volume 10.1 fL (9.5-12.2); Monocytes # (A) 0.49 X 10*3/uL (0.20-1.00); Monocytes % (A) 4.4 %; NRBC Per 100 WBC 0 /100 WBCS (0.0-0.0); Neutrophils # (A) 7.01 X 10*3/uL (1.80-7.70); Neutrophils % (A) 62.5 %; Platelet Count 375 X 10*3/uL (140-440); RBC 5.09 X 10*6/uL (4.10-5.20); RDW 14.7 % (11.5-14.5); WBC 11.21 X 10*3/uL (4.50-10.00)
[2022-06-14 11:35] LABS: % Iron Saturation 10.46 (12.00-45.00); African American GFR (CKD) 141.7 (60.0-200.0); Albumin 4.2 g/dL (3.8-4.9); Albumin/Globulin Ratio 1.32 (1.60-3.17); BUN/Creat Ratio 28.4 Ratio (12.00-20.00); Calcium 9.3 mg/dL (8.7-10.3); Carbon Dioxide 23.3 mmol/L (20.0-27.5); Ferritin 90.2 ng/mL (10.0-291.0); Globulin 3.2 g/dL (1.6-3.3); Non-African American GFR(CKD) 122.2 (60.0-200.0); Potassium 4.7 mmol/L (3.5-5.5); Total Bilirubin 0.3 mg/dL (0.30-1.20); Total Protein 7.4 g/dL (6.2-8.2)
[2022-06-14 11:38] LABS: Hepatitis B Surface Antigen Nonreactive (Nonreactive); Hepatitis C IgG Antibody Nonreactive (Nonreactive)
[2022-06-14 12:12] LABS: Ceruloplasmin 36.3 mg/dL (20.0-60.0)
== END | disposition home or self-care (01) ==
LOC: LABWHC1 07:17
PROVIDERS: ATTEND Internal Medicine Gastroenterology
DX: R74.01 Elevation of levels of liver transaminase levels (principal)
CPT/HCPCS: 36415; 80053; 82103; 82390; 82728; 83516; 83540; 83550; 84165; 85025; 86038; 86803; 87340

== ENCOUNTER → 2022-07-10 | Outpatient (CLI) | payer OTHER ==
[2022-07-10 15:09] VITALS: BP 137/79; PULSE 64; TEMP 98.6; BMI 49.9
--- NOTE | 2022-07-10 15:45 | P.BASOAP ---
Subjective Progress Note Date: 07/10/22 She saw multiple consultants. She feels well. REcommend avoid 3 shakes. Just need 2 daily. She wants bypass. Plan for July 29. Objective - Vital Signs Vital signs: Vital Signs Temp 98.6 F 07/10/22 15:06 Pulse 64 07/10/22 15:06 Resp BP 137/79 07/10/22 15:06 Pulse Ox FiO2 Intake & Output 07/09/22 07/10/22 07/10/22 18:59 06:59 18:59 Weight 138.346 kg Assessment/Plan Plan: Date: 07/10/22 Initial Weight: 143.789 kg Initial BMI: 51.9 Current Weight: 138.346 kg Current BMI: 49.9 Type of Surgery: Total Volume in Band: Previous Volume: Volume Removed: Volume Added: Band Size:
== END ==
LOC: BARWHC3 14:26
PROVIDERS: ATTEND Surgery Plastic and Reconstructive Surgery
DX: E66.01 Morbid (severe) obesity due to excess calories (principal); Z68.42 Body mass index [BMI] 45.0-49.9, adult
CPT/HCPCS: 99211

== ENCOUNTER → 2022-07-22 | Outpatient (CLI) | payer OTHER ==
[2022-07-23 02:37] LABS: African American GFR (CKD) 144.7 (60.0-200.0); Albumin 4.5 g/dL (3.8-4.9); Albumin/Globulin Ratio 1.37 (1.60-3.17); Anion Gap 13.1 mmol/L (10.00-18.00); BUN/Creat Ratio 23.29 Ratio (12.00-20.00); Blood Urea Nitrogen 14.6 mg/dL (9.0-27.0); Calcium 9.9 mg/dL (8.7-10.3); Carbon Dioxide 24.9 mmol/L (20.0-27.5); Globulin 3.3 g/dL (1.6-3.3); Non-African American GFR(CKD) 124.9 (60.0-200.0); Potassium 4.5 mmol/L (3.5-5.5); Total Bilirubin 0.3 mg/dL (0.30-1.20); Total Protein 7.8 g/dL (6.2-8.2)
[2022-07-23 02:46] LABS: Basophils # (A) 0.08 X 10*3/uL (0.00-0.10); Basophils % (A) 0.6 %; Eosinophils # (A) 0.23 X 10*3/uL (0.04-0.35); Eosinophils % (A) 1.6 %; HCT 43.4 % (37.2-46.3); HGB 13.4 g/dL (12.0-15.0); Immature Grans, Automated 0.4 %; Lymphocytes # (A) 3.13 X 10*3/uL (0.90-5.00); Lymphocytes % (A) 22.3 %; MCH 25.9 pg (27.0-32.0); MCHC 30.9 g/dL (32.0-37.0); MCV 83.9 fL (80.0-97.0); Mean Platelet Volume 10.6 fL (9.5-12.2); Monocytes # (A) 0.66 X 10*3/uL (0.20-1.00); Monocytes % (A) 4.7 %; NRBC Per 100 WBC 0 /100 WBCS (0.0-0.0); Neutrophils # (A) 9.88 X 10*3/uL (1.80-7.70); Neutrophils % (A) 70.4 %; Platelet Count 384 X 10*3/uL (140-440); RBC 5.17 X 10*6/uL (4.10-5.20); RDW 14.7 % (11.5-14.5); WBC 14.04 X 10*3/uL (4.50-10.00)
== END | disposition home or self-care (01) ==
LOC: LABPAT 12:44
PROVIDERS: ATTEND Surgery Plastic and Reconstructive Surgery
DX: Z01.812 Encounter for preprocedural laboratory examination (principal)
CPT/HCPCS: 36415; 80053; 85025

== ENCOUNTER 2022-07-29 10:00 | Inpatient (IN) | payer OTHER ==
--- NOTE | 2022-07-29 08:19 | P.GSHP ---
History of Present Illness H&P Date: 07/29/22 CHIEF COMPLAINT: Morbid obesity HISTORY OF PRESENT ILLNESS: Kristy Crawley is a 27-year-old female who comes with lifelong morbid obesity. She has tried Nutrisystem. She has hip pain that is moderate. She denies knee pain. She denies ankle or feet pain. She snores. She still has fatigue while awake and she is looking into sleep apnea. She has elevated liver enzymes. She has fatty liver disease. She is looking into the gastric bypass. She has leukocytosis. At height of 5 feet 5.5 inches, her ideal body weight is 149 pounds. Her highest weight is 316 pounds, body mass index 51.9. She is 167 pounds overweight. PAST MEDICAL HISTORY: 1. Morbid obesity due to excess calories 2. Body mass index 51.9 3. Osteoarthritis of the hips 4. Fatty liver disease PAST SURGICAL HISTORY: 1. No abdominal surgeries HOME MEDICATIONS: Home Medications Medication Instructions Recorded Confirmed No Known Home Medications 09/12/21 12/13/21 ALLERGIES: Allergies Allergy/AdvReac Type Severity Reaction Status Date / Time No Known Allergies Allergy Verified 12/13/21 15:11 SOCIAL HISTORY: Denies tobacco use. FAMILY HISTORY: No family history of ulcerative colitis disease or Crohn's disease. Family history of morbid obesity. No lupus in the family. No reports o f stomach or esophageal cancer. REVIEW OF ORGAN SYSTEMS: CONSTITUTIONAL: At height of 5 feet 5.5 inches, her ideal body weight is 149 pounds. Her highest weight is 316 pounds, body mass index 51.9. She comes in 316 pounds. Her body mass index is 51.9. She is 167 pounds overweight. HEENT: Denies any active troubles with vision or hearing. ENDOCRINE: Denies diabetes. Denies hypothyroidism. CARDIOVASCULAR: Denies past reports of palpitations or heart attacks or chest pain. RESPIRATORY: Has daytime somnolence and snores. GASTROINTESTINAL: Denies any bright red blood per rectum. No diarrhea. No constipation. Has gastroesophageal reflux disease. GENITOURINARY: Denies bladder urgency. No recent blood in urine MUSCULOSKELETAL: Has lower back pain and joint pain. NEURO: Denies migraines. No seizure disorders. PSYCH: Denies depression. No suicidal ideation. RHEUMATOLOGIC: No lupus. No rheumatoid arthritis. HEMATOLOGIC: Denies any abnormal bleeding or bruising. Denies past history of DVTs. SKIN: No rash. No skin cancer. PHYSICAL EXAM: VITAL SIGNS: Height 5 foot 5.5 inches, weight 316 pounds. BMI 51.9 GENERAL: Well-developed in no acute distress. HEENT: No scleral icterus. Extraocular movements grossly intact. Hears conversational speech. No nasal drainage. NECK: Supple without lymphadenopathy. CHEST: Nonlabored respirations with equal bilateral excursions. CARDIOVASCULAR: Regular rate and regular rhythm. Distal 2+ pulses. ABDOMEN: Obese, soft, nontender, nondistended. MUSCULOSKELETAL: No clubbing, cyanosis. NEURO: No focal or lateralizing signs. Cranial nerves 2 through 12 grossly within normal limits. PSYCH: Appropriate affect. Alert and oriented to person, place and time. SKIN: Good skin turgor. Well perfused. ASSESSMENT: 1. Morbid obesity due to excess calories 2. Body mass index 51.9 3. Osteoarthritis of the hips 4. Fatty liver disease 5. Chronic leukocytosis 6. Obstructive sleep apnea PLAN: 1. Bariatric options between a sleeve, band and a Sathish-en-Y gastric bypass were reviewed in detail. The patient elected for a sleeve gastrectomy. Robotic assisted approach described. 2. The [place] [facility] Data was also reviewed with benefits and risks as described. 3. An 8 page second-generation bariatric consent form was reviewed in detail including potential of bleeding, infection, leaks, adequate weight loss, nutritional deficiencies which the patient demonstrated understanding of the risks. 4. A 2 week high-protein low caloric 800 kcal diet described to address hepatomegaly. 5. Preoperative labs including complete metabolic panel and CBC with type and screen recommended. 6. DVT prophylaxis per [place] [facility]. 7. Antibiotic prophylaxis. 8. Inpatient hospitalization anticipated for more than 2 nights. 9. All questions and concerns were addressed with the patient. 10. The patient is at elevated risk for perioperative complications with sleep apnea and hypertensive heart disease. 11. Overall, patient has expressed understanding of bariatric care including postoperative diet and commitment of lifestyle. Patient should benefit from surgical intervention for correction of morbid obesity. 12. She is elevated risk due to pre-existing comorbid conditions Past Medical History Past Medical History: Sleep Apnea/CPAP/BIPAP Additional Past Medical History / Comment(s): "Pre-diabetic." No device use for Sleep Apnea. History of Any Multi-Drug Resistant Organisms: None Reported Past Surgical History: Adenoidectomy, Tonsillectomy Additional Past Surgical History / Comment(s): EGD. Past Anesthesia/Blood Transfusion Reactions: No Reported Reaction Past Psychological History: No Psychological Hx Reported Smoking Status: Never smoker Past Alcohol Use History: None Reported Past Drug Use History: None Reported - Past Family History Mother Family Medical History: No Reported History Medications and Allergies Home Medications Medication Instructions Recorded Confirmed Type No Known Home Medications 09/12/21 07/24/22 History Allergies Allergy/AdvReac Type Severity Reaction Status Date / Time No Known Allergies Allergy Verified 07/24/22 13:09
[~2022-07-29 10:00] MED LIST changes: +ACETAMINOPHEN TAB 500 MG TAB PO STA; +CHLORHEXIDINE GLUCONATE 15 ML CUP MUCOUS MEM PRN; +DEXAMETHASONE SOD PHOSPHATE 4 MG/ML 1 ML VIAL IV ONE; +HYDROmorphone 0.5 MG/0.5 ML SYRINGE IVP PRN; -LACTATED RINGERS 1,000 ML IV SCH; -LIDOCAINE 2% INJ 20 MG/ML (2 ML VIAL) ONE; -MIDAZOLAM 2 MG/2 ML VIAL ONE; +ONDANSETRON 4 MG/2 ML VIAL IVP ONE; +PANTOPRAZOLE 40 MG/10 ML VIAL IVP PRN; -PROPOFOL 10 MG/ML 20 ML VIAL IV ONE; +SCOPOLAMINE 1 MG/72 HR PATCH TRANSDERM ONE; +droPERidol 5 MG/2 ML VIAL IVP ONE
[2022-07-29] MEDS: LACTATED RINGERS 1,000 ML IV SCH (10:34)
[2022-07-29 10:54] LABS: Glucose,Whole Blood 87 mg/dL (70-110)
[2022-07-29] MEDS ORDERED: ENOXAPARIN 40 MG/0.4 ML SYRINGE SQ STA (13:02)
--- NOTE | 2022-07-29 13:09 | P.HPADDEND ---
H&P Addendum H&P Addendum Date: 07/29/22 Patient presents alongside with her mother. Benefits and risks of all procedures including slowly and the gastric bypass also reviewed. Patient is concerned about weight loss maximal weight loss. Risks between both procedures addressed including reflux disease with sleeve gastrectomy versus bowel obstruction, strictures, gastric ulcers and intractable nausea and vomiting which may happen with both surgery. An the presence of intra-abdominal adhesions, patient elected for sleeve gastrectomy. Upon further discussion with the patient and the patient's discussion with her mother including commitment to the close follow-up, patient has elected for sleeve gastrectomy instead of the gastric bypass.
[2022-07-29] MEDS ORDERED: KETOROLAC 15 MG/ML 1 ML VIAL ONE (13:17)
[2022-07-29] MEDS ORDERED: SUCCINYLCHOLINE CHLORIDE 200 MG/10 ML VIAL IV ONE (13:17)
[2022-07-29] MEDS ORDERED: MIDAZOLAM 2 MG/2 ML VIAL ONE (13:17)
[2022-07-29] MEDS ORDERED: LIDOCAINE 2% INJ 20 MG/ML (2 ML VIAL) ONE (13:17)
[2022-07-29] MEDS ORDERED: ROCURONIUM 10 MG/ML (5 ML VIAL) IV ONE (13:17)
[2022-07-29] MEDS ORDERED: fentaNYL (PF) 50 MCG/ML 2 ML AMP ONE (13:17)
[2022-07-29] MEDS ORDERED: GLYCOPYRROLATE 0.2 MG/ML 2 ML VIAL ONE (13:17)
[2022-07-29] MEDS ORDERED: NEOSTIGMINE 1 MG/ML 10 ML VIAL ONE (13:17)
[2022-07-29] MEDS: ceFAZolin 3 GM in SODIUM CHLORIDE 0.9% 100 ML IVPB PRN ×2 (13:22→14:34)
[2022-07-29] MEDS ORDERED: BUPIVACAINE (PF) 0.5% 30 ML VIAL SQ ONE (14:33)
[2022-07-29] MEDS ORDERED: LACTATED RINGERS 1,000 ML IV ONE ×2 (15:09→16:53)
[2022-07-29] MEDS ORDERED: HYDROmorphone 0.5 MG/0.5 ML SYRINGE IVP ONE ×5 (15:40→17:30)
[2022-07-29] MEDS ORDERED: ONDANSETRON 4 MG/2 ML VIAL IVP ONE (16:45)
[2022-07-29] MEDS ORDERED: SODIUM CHLORIDE 0.9% 2,000 ML IV ONE (17:38)
[2022-07-29] MEDS ORDERED: NALOXONE 0.4 MG/ML 1 ML VIAL IV PRN ×2 (17:38→17:48)
[2022-07-29] MEDS ORDERED: HYDROmorphone 1 MG/ML 1 ML SYRINGE IVP PRN (17:38)
[2022-07-29] MEDS ORDERED: diphenhydrAMINE 50 MG/ML 1 ML VIAL IVP PRN (17:38)
--- NOTE | 2022-07-29 17:45 | P.OP ---
Date of Procedure: 07/29/22 Description of Procedure: SURGEON: ZHANNA MENDOZA MD PREOPERATIVE DIAGNOSES: 1. Morbid obesity due to excess calories 2. Body mass index 51.9 3. Osteoarthritis of the hips 4. Fatty liver disease 5. Chronic leukocytosis 6. Obstructive sleep apnea POSTOPERATIVE DIAGNOSES: 1. Morbid obesity due to excess calories 2. Body mass index 51.9 3. Osteoarthritis of the hips 4. Fatty liver disease 5. Chronic leukocytosis 6. Obstructive sleep apnea OPERATION: 1. Robotic assisted daVinci Xi laparoscopic sleeve gastrectomy with 40-Barbadian bougie, multiport. 2. Intraoperative esophagogastroduodenoscopy. ANESTHESIA: Gen. local anesthetic ESTIMATED BLOOD LOSS: 10 mL SPECIMENS REMOVED: Sleeve gastrectomy COMPLICATIONS: None. FINDINGS: 1. Negative intraoperative esophagogastrojejunoscopy leak test. 2. No large hiatus hernia. 3. Total of 5 staplers used including 1 - 60 mm black robot taylor and 1 - 60 mm green and 3 - 60 mm blue robot loads used to create the gastric sleeve. 4. Sleeve gastrectomy, 21 x 6 cm INDICATIONS: Kristy Ramirez is a 27-year-old female who comes with lifelong morbid obesity. Due to her struggles with weight loss and after complete medical supervised weight loss, she opted for surgical intervention for bariatric surgery. She has comorbidities including obstructive sleep apnea, fatty liver disease, osteoarthritis of the knees and back At height of 5 feet 5 inches, her ideal body weight is 149 pounds. She comes in 292 pounds. Her body mass index is 48.6. She is 142 pounds overweight. All surgical options for morbid obesity had been described using the [place] [facility] collaborative comorbidity resolution including complication risk score. A second-generation bariatric consent form was described in detail including the possibility of protein malnutrition, leaks, gastric stricture, venous thrombosis, gastroesophageal reflux disease, need for further surgery for which she demonstrated understanding. Benefits and risks of the procedure were described at length. Informed consent was obtained. DESCRIPTION: The patient was brought into the operating room theater. Preoperatively she had received Lovenox subcutaneously for DVT prophylaxis. Additionally she had Peridex oral solution as an oral decontaminant. After general induction, the abdomen was prepped and draped in standard sterile fashion. An Ioban draping was placed along the abdomen. A robotic da Vivienne Xi system was prepped and primed. At 15 cm from the xiphoid, proposed port sites were marked with indelible marker along the anterior axillary line bilaterally, mid axillary line bilaterally with each ports were marked 10 to 15 cm from each other. The robotic stapler port was marked for the right midclavicular line. A 5 mm 0 degrees laparoscopic trocar entry was performed along the left upper quadrant. The abdomen was insufflated to 15 mmHg pressure was tolerated well. Diagnostic laparoscopy demonstrated no injury to bowel, viscera, or mesentery. No evidence of large hiatus hernia was identified. The liver edge was rounded consistent with a pre-existing fatty liver disease. A 8 mm port was placed along the left upper abdominal wall after exchanging the 5 mm port. A separate 8 mm port was placed along the left lateral abdominal wall. Please note that the ports were placed at least 20 cm away from the target anatomy. Care was taken to check each robotic arms were safely away from collision with the bed or the patient. At the epigastrium, a medium sized Eliecer liver retractor was placed under direct visualization with the [place] Intern placed under the right shoulder of the patient. Next, 12-mm robot stapler port was placed along the right upper quadrant. The camera 8-mm port was maintained along the epigastrium. The patient was repositioned in reverse Trendelenburg position at 21-degrees after lowering the bed. The robot was docked along the left side of the patient. Using a grasper for arm 4, a vessel sealer for arm 3, including grasper for arm 1, the robotic system was docked and primed as described. Instruments were interchanged by the dam tender assistant for stapler loads. The camera was placed at 30- degrees down. I had sat at the console. The pylorus was identified and 6 cm proximally along the greater curvature of the stomach, the short gastrics were mobilized upwards to the angle of His using a vessel sealer. Hemostasis was excellent during this portion of the procedure. Next, the upper pole of the stomach was adherent to the left cesar, which was gently dissected free using atraumatic grasper. I went to the head of the bed and placed 40-Barbadian blunt bougie into the stomach. The bougie was readjusted by the nurse dictating machine typist. Robotic stapler black load 60 mm 1 followed by green 60 mm x 1 loads and blue loads 60 mm 3 were used to create the sleeve. Initial firing was across the antrum of the stomach towards the angle of His. The staple line was linear without corkscrewing. The space from the angularis incisura of the sleeve was approximately 4 cm. I then went to the head of the bed to perform the intraoperative esophagogastroduodenoscopy leak test. The bougie was withdrawn. The upper pole of the stomach was bathed using normal saline solution. The scope was withdrawn with careful inspection along the staple line for which no leaks were found along the entire length. Additionally,the sleeve was completely hemostatic without any encroachment along the angularis incisura. Its topology was a soft "J". No stricture was encountered upon placement of the scope. The GI tract was desufflated. The patient tolerated this portion of the procedure well. The scope was completely withdrawn. The robot was undocked. I then rescrubbed into case, whereby the irrigation fluid was aspirated from the abdominal cavity. Tisseel fibrin sealant was placed along the entire staple length. Once dried the Eliecer liver retractor was removed. Attention was now brought to removal of the specimen. The distal end of the sleeve gastrectomy specimen was brought out through the 12 mm port at the left upper quadrant. The specimen was gently removed en total. No contamination had occurred during this process. All instruments and pneumoperitoneum including irrigation fluid was removed from the abdominal cavity. The 12 mm port site was closed using 0-Vicryl and Luis Pierre and irrigated with diluted hydrogen peroxide. The final incisions were closed using subcuticular interrupted suture of 4-0 Monocryl. Exofin was applied to the skin once the skin had been cleansed. OptiFoam dressing was placed along the stomach extraction site. The sleeve specimen was measured and checked also for leaks which none were found. At the end of the procedure, needle, sponge, and instrument count was verified correct by the rn surgical. The patient was taken to the postanesthesia care unit in stable condition. She had tolerated the procedure well. Intraoperative films and findings were reviewed with the patient's family.
[2022-07-29] MEDS: ACETAMINOPHEN IV (For NPO) 1,000 MG in EMPTY BAG 1 BAG IVPB SCH (18:19)
[2022-07-29] MEDS: DEXAMETHASONE SOD PHOSPHATE 4 MG/ML 1 ML VIAL IVP SCH (18:20)
[2022-07-29] MEDS: fentaNYL PCA 500 MCG/50 ML BAG IV PRN (19:05)
[2022-07-29] MEDS: SIMETHICONE 80 MG CHEWABLE PO SCH (19:58)
[2022-07-29] MEDS: HYOSCYAMINE ORAL DROPS 1.875 MG/15 ML BOTTLE PO SCH (20:00)
[2022-07-29] MEDS: ALBUTEROL NEBULIZED 2.5 MG/3 ML INHALATION SCH (20:34)
[2022-07-29] MEDS: PANTOPRAZOLE 40 MG/10 ML VIAL IV SCH (20:54)
[2022-07-29] MEDS: 0.9% NACL WITH KCL 20 MEQ/L 1,000 ML IV SCH (20:54)
[2022-07-29] MEDS ORDERED: ceFAZolin 3 GM in SODIUM CHLORIDE 0.9% 100 ML IVPB SCH (21:00)
[2022-07-30] MEDS: ACETAMINOPHEN IV (For NPO) 1,000 MG in EMPTY BAG 1 BAG IVPB SCH ×3 (00:02→11:39)
[2022-07-30] MEDS: DEXAMETHASONE SOD PHOSPHATE 4 MG/ML 1 ML VIAL IVP SCH ×3 (00:02→11:44)
[2022-07-30] MEDS: HYOSCYAMINE ORAL DROPS 1.875 MG/15 ML BOTTLE PO SCH ×3 (00:03→11:39)
[2022-07-30] MEDS: SIMETHICONE 80 MG CHEWABLE PO SCH ×3 (00:03→11:40)
[2022-07-30] MEDS: 0.9% NACL WITH KCL 20 MEQ/L 1,000 ML IV SCH (04:11)
[2022-07-30] MEDS: fentaNYL PCA 500 MCG/50 ML BAG IV PRN (06:57)
[2022-07-30] MEDS ORDERED: 1: MVI, ADULT NO.4 WITH VIT K 10 ML, THIAMINE 100 MG, FOLIC ACID 1 MG, POTASSIUM CHLORID IV SCH ×6 (08:00)
[2022-07-30 08:51] LABS: Basophils # (A) 0.02 X 10*3/uL (0.00-0.10); Basophils % (A) 0.2 %; Eosinophils # (A) 0 X 10*3/uL (0.04-0.35); Eosinophils % (A) 0 %; HCT 40.7 % (37.2-46.3); Immature Grans, Automated 0.5 %; Lymphocytes # (A) 0.98 X 10*3/uL (0.90-5.00); Lymphocytes % (A) 7.4 %; MCHC 31.9 g/dL (32.0-37.0); MCV 81.4 fL (80.0-97.0); Mean Platelet Volume 10.6 fL (9.5-12.2); Monocytes # (A) 0.13 X 10*3/uL (0.20-1.00); NRBC Per 100 WBC 0 /100 WBCS (0.0-0.0); Neutrophils # (A) 12.14 X 10*3/uL (1.80-7.70); Neutrophils % (A) 90.9 %; Platelet Count 374 X 10*3/uL (140-440); RDW 14.5 % (11.5-14.5); WBC 13.33 X 10*3/uL (4.50-10.00)
[2022-07-30 08:59] LABS: African American GFR (CKD) 146.8 (60.0-200.0); Anion Gap 13.5 mmol/L (10.00-18.00); Blood Urea Nitrogen 5.7 mg/dL (9.0-27.0); Calcium 8.8 mg/dL (8.7-10.3); Carbon Dioxide 21.5 mmol/L (20.0-27.5); Non-African American GFR(CKD) 126.7 (60.0-200.0); Phosphorus 2.5 mg/dL (2.4-5.1); Potassium 4.6 mmol/L (3.5-5.5)
[2022-07-30] MEDS ORDERED: ENOXAPARIN 40 MG/0.4 ML SYRINGE SQ SCH (09:00)
[2022-07-30] MEDS: ALBUTEROL NEBULIZED 2.5 MG/3 ML INHALATION SCH ×3 (09:04→16:11)
[2022-07-30 09:20] LABS: Magnesium 1.8 mg/dL (1.5-2.4)
[2022-07-30] MEDS: LACTATED RINGERS 1,000 ML IV SCH (09:50)
[2022-07-30] MEDS: PANTOPRAZOLE 40 MG/10 ML VIAL IV SCH (09:55)
--- NOTE | 2022-07-30 10:07 | FL ---
EXAMINATION TYPE: FL UGI DATE OF EXAM: 07/30/2022 COMPARISON: NONE HISTORY: 27-year-old female postop bariatric surgery, sleeve gastrectomy TECHNIQUE: A single contrast UGI study is performed utilizing 75 mL Isovue-370. A total of 1 minute 25 seconds of fluoroscopic time was utilized during procedure and 37 images obtained. Total dose are a product (DAP) in uGy*m?, mGy*cm? (or similar): 688.94. FINDINGS: The patient swallowed oral contrast without difficulty or delay. While there is prompt pas rachel from the esophagus into the proximal aspect of the stomach and then subsequently across the tyesha kirill sleeve to the distal part of the stomach, there is relative delay in clearance from the distal es ophagus and proximal stomach resulting in pooling of contrast. Gradual clearance from the distal esop hagus is seen. There is no extravasation of contrast to suggest leak. Contrast is seen passing into t he duodenum at the end of the study no free intraperitoneal air. IMPRESSION: 1. Status post sleeve gastrectomy with a relative mild obstruction along the sleeve. Suspect a compon ent of mild postoperative edema. 2. No evidence for leak or free air.
[2022-07-30 10:54] VITALS: BMI 48.6
--- NOTE | 2022-07-30 14:54 | P.DS ---
Providers Date of admission: 07/29/22 10:23 Expected date of discharge: 07/30/22 Attending physician: Keara Ambrose Consults: 07/29/22 08:21 Consult Physician Routine Consulting Provider: [facility] Consult Reason/Comments: Total IV Anesthesia Do you want consulting provider notified?: Yes Primary care physician: Geovanni Sanabria MD Hospital Course: Discharge diagnosis 1. Morbid obesity due to excess calories 2. Body mass index 51.9 3. Osteoarthritis of the hips 4. Fatty liver disease 5. Chronic leukocytosis 6. Obstructive sleep apnea 7. Leukocytosis likely reactive from steroids Hospital course Kristy Ramirez is a 27-year-old female who comes with lifelong morbid obesity. Patient is status post robotic-assisted da Vivienne laparoscopic sleeve gastrectomy. Patient tolerated surgery well up her GI did reveal mild obstruction along the sleeve. Suspect a component of mild obstructive edema. No evidence of leak or free air. Patient is tolerating liquids. Her pain is controlled. She has been up and ambulating. She denies any difficulty urinating. She's afebrile. She is stable for discharge. Physician Electronic Equipment Installer note has been reviewed by physician. Signing provider agrees with the documented findings, assessment, and plan of care. Patient Condition at Discharge: Stable Plan - Discharge Summary Discharge Rx Participant: Yes New Discharge Prescriptions: New bisacodyL [Dulcolax] 5 mg PO DAILY PRN #10 tab PRN Reason: Constipation Simethicone 40 mg/0.6 ml Drops [Mylicon Drops] 40 mg PO PCHS PRN #30 ml PRN Reason: Gas Ondansetron Odt [Zofran Odt] 4 mg PO Q8HR PRN #9 tab PRN Reason: Nausea Omeprazole [PriLOSEC] 40 mg PO DAILY #30 cap Acetaminophen Tab [Tylenol] 1,000 mg PO Q6HR PRN #30 tablet PRN Reason: Pain Discharge Medication List Acetaminophen Tab [Tylenol] 1,000 mg PO Q6HR PRN #30 tablet 07/30/22 [Rx] Omeprazole [PriLOSEC] 40 mg PO DAILY #30 cap 07/30/22 [Rx] Ondansetron Odt [Zofran Odt] 4 mg PO Q8HR PRN #9 tab 07/30/22 [Rx] Simethicone 40 mg/0.6 ml Drops [Mylicon Drops] 40 mg PO HS PRN #30 ml 07/30/22 [Rx] bisacodyL [Dulcolax] 5 mg PO DAILY PRN #10 tab 07/30/22 [Rx] Follow up Appointment(s)/Referral(s): [place], [place] [NON-STAFF] - 08/02/22 9:00 am Activity/Diet/Wound Care/Special Instructions: Liquid diet only for 2 weeks No lifting over 4 pounds in 4 weeks May Shower. No soaking in bath tubs for 2 weeks Please notify your surgeon if you develop nausea and vomiting including new onset of abdominal pain. Continue to use incentive spirometry to prevent pneumonias. Please continue to ambulate at home to prevent blood clots in legs. Follow-up at the bariatric center. May shower. Dressings to be discontinued by surgeon in the office. Drink 64 oz of fluid daily. Start protein shakes on . Notify bariatric center for temp over 101.0, increased pain, drainage from incisions. No straws or carbonated beverages. Liquid diet only. Sugar content should be less than 6 g to avoid dumping syndrome. Take MOM for constipation. CRUSH, OPEN, OR CUT TABLETS LARGER THAN A SIZE OF A TIC TAC Discharge Disposition: HOME SELF-CARE
[2022-07-30 15:29] VITALS: BP 121/69; PULSE 74; RESP 16; TEMP 97.7
[2022-07-31] MEDS ORDERED: bisacodyL 5 MG TABLET.DR PO PRN (08:00)
== END 2022-07-30 16:17 | disposition home or self-care (01) | DRG 421 ==
LOC: 2ORMAIN 10:23 → 4SSUR 16:55
PROVIDERS: ADMIT Surgery Plastic and Reconstructive Surgery; ATTEND Surgery Plastic and Reconstructive Surgery
PROC: 0DJ08ZZ Inspection of Upper Intestinal Tract, Via Natural or Artificial Opening Endoscopic (ICD-10-PCS; 2022-07-29)
PROC: 0DB64ZZ Excision of Stomach, Percutaneous Endoscopic Approach (ICD-10-PCS; principal; 2022-07-29 11:30)
PROC: 8E0W4CZ Robotic Assisted Procedure of Trunk Region, Percutaneous Endoscopic Approach (ICD-10-PCS; principal; 2022-07-29 11:30)
DX: E66.01 Morbid (severe) obesity due to excess calories (principal); Z68.42 Body mass index [BMI] 45.0-49.9, adult; I11.9 Hypertensive heart disease without heart failure; K76.0 Fatty (change of) liver, not elsewhere classified; Z28.310 Unvaccinated for COVID-19; D72.829 Elevated white blood cell count, unspecified; T38.0X5A Adverse effect of glucocorticoids and synthetic analogues, initial encounter; G47.33 Obstructive sleep apnea (adult) (pediatric); R73.03 Prediabetes; M16.0 Bilateral primary osteoarthritis of hip; M17.0 Bilateral primary osteoarthritis of knee; M47.9 Spondylosis, unspecified; Z83.49 Family history of other endocrine, nutritional and metabolic diseases
CPT/HCPCS: 74240; 80051; 81025; 82310; 82565; 83735; 84100; 84520; 85025; 86850; 86900; 86901; 88307; 94640; 94760

== ENCOUNTER → 2022-08-02 | Outpatient (CLI) | payer OTHER ==
[2022-08-02 10:11] VITALS: BP 117/64; PULSE 67; RESP 16; TEMP 97.3
[2022-08-02] MEDS: SODIUM CHLORIDE 0.9% 1,000 ML IV SCH ×2 (10:14→11:15)
== END ==
LOC: PROCWHC3 10:03
PROVIDERS: ATTEND Surgery Plastic and Reconstructive Surgery
DX: E86.0 Dehydration (principal)
CPT/HCPCS: 96360; 96361

== ENCOUNTER → 2022-08-02 | Outpatient (CLI) | payer OTHER ==
[2022-08-02 10:06] VITALS: BP 102/70; PULSE 98; RESP 12; TEMP 98.4; BMI 47.5
--- NOTE | 2022-08-02 10:48 | P.BASOAP ---
Subjective Progress Note Date: 08/02/22 She reports decreased oral intake.commend IV fluid hydration. No infection. Images from her surgery reviewed in detail. Follow-up next week. May start protein shakes. Recommend IV fluid hydration. Objective - Vital Signs Vital signs: Vital Signs Temp 98.4 F 08/02/22 09:45 Pulse 98 08/02/22 09:45 Resp 12 08/02/22 09:45 BP 102/70 08/02/22 09:45 Pulse Ox FiO2 Intake & Output 08/01/22 08/02/22 08/02/22 18:59 06:59 18:59 Weight 131.678 kg Assessment/Plan Plan: Date: 08/02/22 Initial Weight: 143.789 kg Initial BMI: 51.9 Current Weight: 131.678 kg Current BMI: 47.5 Type of Surgery: Total Volume in Band: Previous Volume: Volume Removed: Volume Added: Band Size:
== END ==
LOC: BARWHC3 08:52
PROVIDERS: ATTEND Surgery Plastic and Reconstructive Surgery
DX: E66.01 Morbid (severe) obesity due to excess calories (principal); Z68.42 Body mass index [BMI] 45.0-49.9, adult
CPT/HCPCS: 99211

== ENCOUNTER → 2022-08-07 | Outpatient (CLI) | payer OTHER ==
[2022-08-07 14:08] VITALS: BP 125/81; PULSE 82; TEMP 98.4; BMI 45.8
--- NOTE | 2022-08-07 14:44 | P.BASOAP ---
Subjective Progress Note Date: 08/07/22 SHe has appropriate incisional pain. She has lost 25 pounds. No GERD. Vitals are excellent. She is doing well. No other complaints. She is on 2 shakes daily. She wants to swim. She is still wearing her binder. Objective - Vital Signs Vital signs: Vital Signs Temp 98.4 F 08/07/22 14:04 Pulse 82 08/07/22 14:04 Resp BP 125/81 08/07/22 14:04 Pulse Ox FiO2 Intake & Output 08/06/22 08/07/22 08/07/22 18:59 06:59 18:59 Weight 127.006 kg Assessment/Plan Plan: Date: 08/07/22 Initial Weight: 143.789 kg Initial BMI: 51.9 Current Weight: 127.006 kg Current BMI: 45.8 Type of Surgery: Total Volume in Band: Previous Volume: Volume Removed: Volume Added: Band Size:
== END ==
LOC: BARWHC3 13:55
PROVIDERS: ATTEND Surgery Plastic and Reconstructive Surgery
DX: E66.01 Morbid (severe) obesity due to excess calories (principal); Z68.42 Body mass index [BMI] 45.0-49.9, adult; Z71.3 Dietary counseling and surveillance
CPT/HCPCS: 97802; G0463; 99211

== ENCOUNTER → 2022-11-06 | Outpatient (CLI) | payer OTHER ==
[2022-11-06 13:22] VITALS: BP 102/43; PULSE 61; TEMP 98.6; BMI 40.0
--- NOTE | 2022-11-06 14:22 | P.BASOAP ---
Subjective Progress Note Date: 11/06/22 SHe is taking womens centrum. Doing well. No pain. No reflux. Get labs. Wants 150 pounds. FLuids are well. Lost 70+ pounds. She has panniculitis. Objective - Vital Signs Vital signs: Vital Signs Temp 98.6 F 11/06/22 13:16 Pulse 61 11/06/22 13:16 Resp BP 102/43 11/06/22 13:16 Pulse Ox FiO2 Intake & Output 11/05/22 11/06/22 11/06/22 18:59 06:59 18:59 Weight 110.903 kg Assessment/Plan Plan: Date: 11/06/22 Initial Weight: 143.789 kg Initial BMI: 51.9 Current Weight: 110.903 kg Current BMI: 40.0 Type of Surgery: Total Volume in Band: Previous Volume: Volume Removed: Volume Added: Band Size:
[2022-11-06 16:38] LABS: Partial Thromboplastin Time 24.8 sec (22.0-30.0); Prothrombin Time 10.5 sec (9.0-12.0)
[2022-11-06 19:53] LABS: Prealbumin 12.1 mg/dL (18.0-42.0)
[2022-11-06 20:22] LABS: % Iron Saturation 6.86 (12.00-45.00); ALT 83 U/L (8-44); AST 52 U/L (13-35); Albumin 4.3 d/dL (3.8-4.9); Albumin/Globulin Ratio 1.54 Ratio (1.60-3.17); Alkaline Phosphatase 149 U/L (41-126); Blood Urea Nitrogen 17.7 mg/dL (9.0-27.0); Calcium 9.4 mg/dL (8.7-10.3); Carbon Dioxide 24.4 mmol/L (21.6-31.8); Chloride 103 mmol/L (96-109); Chol/HDL Ratio 4.99 Ratio; Ferritin 90.6 ng/mL (10.0-291.0); Globulin 2.8 d/dL (1.6-3.3); Glucose 90 mg/dL (70-110); Iron 24 UG/DL (50-170); LDL Cholesterol,Calculated 111.7 mg/dL (0.0-131.0); Magnesium 1.9 mg/dL (1.5-2.4); Phosphorus 4.6 mg/dL (2.4-5.1); Potassium 4.2 mmol/L (3.5-5.5); Sodium 141 mmol/L (135-145); Total Bilirubin 0.3 mg/dL (0.3-1.2); Total Iron Binding Capacity 350 UG/DL (228-460); Total Protein 7.1 d/dL (6.2-8.2)
[2022-11-06 20:37] LABS: HCT 41.5 % (37.2-46.3); HGB 13.1 d/dL (12.0-15.0); MCH 26.3 pg (27.0-32.0); MCHC 31.6 d/dL (32.0-37.0); MCV 83.3 FL (80.0-97.0); Mean Platelet Volume 11.5 FL (9.5-12.2); NRBC Per 100 WBC 0 X 10*3/uL (0.00-0.01); Platelet Count 345 X 10*3/uL (140-440); RBC 4.98 X 10*6/uL (4.10-5.20); RDW 16.3 % (11.5-14.5); WBC 16.27 X 10*3/uL (4.50-10.00)
[2022-11-07 13:02] LABS: Zinc, Serum 71 ug/dL (60-130)
[2022-11-08 06:00] LABS: Vit B1(Thiamine) 73 ug/L (38-122)
[2022-11-08 12:29] LABS: Vitamin A 26 ug/dL (38-106)
[2022-11-20 14:50] LABS: Selenium 106 mcg/L (63-160)
== END ==
LOC: BARWHC3 13:06
PROVIDERS: ATTEND Surgery Plastic and Reconstructive Surgery
DX: E66.01 Morbid (severe) obesity due to excess calories (principal); E89.1 Postprocedural hypoinsulinemia; K90.89 Other intestinal malabsorption; K74.1 Hepatic sclerosis; N19 Unspecified kidney failure; T56.894A Toxic effect of other metals, undetermined, initial encounter; K50.90 Crohn's disease, unspecified, without complications; Z71.3 Dietary counseling and surveillance; Z68.41 Body mass index [BMI] 40.0-44.9, adult
CPT/HCPCS: 84255; 84134; 84425; 80061; 80053; 82607; 82728; 82525; 82746; 83540; 83550; 83735; 84100; 84443; 84590; 84630; 85027; 85610; 85730; 82306; 83970; 83036; 97803; G0463; 99211

== ENCOUNTER → 2022-12-25 | Outpatient (CLI) | payer OTHER ==
[2022-12-25 13:26] VITALS: BP 120/74; PULSE 73; TEMP 97.9; BMI 37.2
--- NOTE | 2022-12-25 14:15 | P.BASOAP ---
Subjective Progress Note Date: 12/25/22 She lost 90 pounds Her goal is 160 pounds. She is 5 months out. Her protein intake is 80 grams daily. She has great family and friend support. No heartburn. She has hard stools. Increase vegetables more fiber. Labs last time reviewed. She lost 90 pounds. Due for labs. Next follwup in Mar/Apr 2023. Objective - Vital Signs Vital signs: Vital Signs Temp 97.9 F 12/25/22 13:24 Pulse 73 12/25/22 13:24 Resp BP 120/74 12/25/22 13:24 Pulse Ox FiO2 Intake & Output 12/24/22 12/25/22 12/25/22 18:59 06:59 18:59 Weight 102.965 kg Assessment/Plan Plan: Date: 12/25/22 Initial Weight: 143.789 kg Initial BMI: 51.9 Current Weight: 102.965 kg Current BMI: 37.2 Type of Surgery: Total Volume in Band: Previous Volume: Volume Removed: Volume Added: Band Size:
[2022-12-25 15:42] LABS: Partial Thromboplastin Time 26.5 sec (22.0-30.0); Prothrombin Time 10.8 sec (10.0-12.5)
[2022-12-25 20:41] LABS: HCT 40.3 % (37.2-46.3); HGB 12.8 d/dL (12.0-15.0); MCH 27.1 pg (27.0-32.0); MCHC 31.8 d/dL (32.0-37.0); MCV 85.4 FL (80.0-97.0); Mean Platelet Volume 11.2 FL (9.5-12.2); NRBC Per 100 WBC 0 X 10*3/uL (0.00-0.01); Platelet Count 313 X 10*3/uL (140-440); RBC 4.72 X 10*6/uL (4.10-5.20); RDW 15.9 % (11.5-14.5); WBC 13.95 X 10*3/uL (4.50-10.00)
[2022-12-25 21:20] LABS: % Iron Saturation 9.94 (12.00-45.00); ALT 71 U/L (8-44); AST 36 U/L (13-35); Albumin 4.3 d/dL (3.8-4.9); Albumin/Globulin Ratio 1.65 Ratio (1.60-3.17); Alkaline Phosphatase 144 U/L (41-126); BUN/Creat Ratio 39.67 Ratio (12.00-20.00); Blood Urea Nitrogen 23.8 mg/dL (9.0-27.0); Calcium 9.5 mg/dL (8.7-10.3); Carbon Dioxide 26.9 mmol/L (21.6-31.8); Chloride 103 mmol/L (96-109); Chol/HDL Ratio 4.61 Ratio; Globulin 2.6 d/dL (1.6-3.3); Glucose 89 mg/dL (70-110); Iron 32 UG/DL (50-170); LDL Cholesterol,Calculated 112.6 mg/dL (0.0-131.0); Magnesium 1.9 mg/dL (1.5-2.4); Phosphorus 4.2 mg/dL (2.4-5.1); Potassium 4.5 mmol/L (3.5-5.5); Sodium 141 mmol/L (135-145); Total Bilirubin 0.2 mg/dL (0.3-1.2); Total Iron Binding Capacity 322 UG/DL (228-460); Total Protein 6.9 d/dL (6.2-8.2)
[2022-12-26 05:42] LABS: Prealbumin 16.6 mg/dL (18.0-42.0)
[2022-12-26 15:29] LABS: Zinc, Serum 60 ug/dL (60-130)
[2022-12-27 06:09] LABS: Vitamin A 35 ug/dL (38-106)
[2022-12-27 06:43] LABS: Vit B1(Thiamine) 61 ug/L (38-122)
== END ==
LOC: BARWHC3 13:03
PROVIDERS: ATTEND Surgery Plastic and Reconstructive Surgery
DX: E66.01 Morbid (severe) obesity due to excess calories (principal); E89.1 Postprocedural hypoinsulinemia; D50.8 Other iron deficiency anemias; K90.89 Other intestinal malabsorption; E55.9 Vitamin D deficiency, unspecified; K74.1 Hepatic sclerosis; N19 Unspecified kidney failure; T56.894A Toxic effect of other metals, undetermined, initial encounter; K50.90 Crohn's disease, unspecified, without complications; Z71.3 Dietary counseling and surveillance; Z68.37 Body mass index [BMI] 37.0-37.9, adult
CPT/HCPCS: 84255; 84134; 84425; 80061; 80053; 82607; 82728; 82525; 82746; 83540; 83550; 83735; 84100; 84443; 84590; 84630; 85027; 85610; 85730; 82306; 83970; 83036; 97803; G0463; 99211

== ENCOUNTER → 2023-04-23 | Outpatient (CLI) | payer OTHER ==
[2023-04-23 17:33] LABS: INR 0.9 (<1.2); Partial Thromboplastin Time 25.3 sec (22.0-30.0); Prothrombin Time 10.4 sec (10.0-12.5)
[2023-04-24 03:45] LABS: HCT 43.4 % (37.2-46.3); MCH 28.2 pg (27.0-32.0); MCHC 32.3 g/dL (32.0-37.0); MCV 87.5 FL (80.0-97.0); Mean Platelet Volume 11.2 FL (9.5-12.2); NRBC Per 100 WBC 0 X 10*3/uL (0.00-0.01); Platelet Count 289 X 10*3/uL (140-440); RBC 4.96 X 10*6/uL (4.10-5.20); RDW 13.7 % (11.5-14.5); WBC 11.79 X 10*3/uL (4.50-10.00)
[2023-04-24 03:49] LABS: Prealbumin 21.5 mg/dL (18.0-42.0)
[2023-04-24 04:19] LABS: ALT 79 U/L (8-44); AST 35 U/L (13-35); Albumin 4.4 g/dL (3.8-4.9); Albumin/Globulin Ratio 1.52 Ratio (1.60-3.17); Alkaline Phosphatase 128 U/L (41-126); BUN/Creat Ratio 35.33 Ratio (12.00-20.00); Blood Urea Nitrogen 21.2 mg/dL (9.0-27.0); Calcium 9.9 mg/dL (8.7-10.3); Carbon Dioxide 25.9 mmol/L (21.6-31.8); Chloride 104 mmol/L (96-109); Chol/HDL Ratio 4.58 Ratio; Globulin 2.9 g/dL (1.6-3.3); Glucose 100 mg/dL (70-110); Iron 66 UG/DL (50-170); LDL Cholesterol,Calculated 135.7 mg/dL (0.0-131.0); Phosphorus 4.3 mg/dL (2.4-5.1); Potassium 4.1 mmol/L (3.5-5.5); Sodium 142 mmol/L (135-145); Total Bilirubin 0.2 mg/dL (0.3-1.2); Total Iron Binding Capacity 330 UG/DL (228-460); Total Protein 7.3 g/dL (6.2-8.2)
[2023-04-24 12:52] LABS: Zinc, Serum 69 ug/dL (60-130)
[2023-04-25 06:10] LABS: Vitamin A 54 ug/dL (38-106)
[2023-04-25 10:28] LABS: Vit B1(Thiamine) 92 ug/L (38-122)
== END | disposition home or self-care (01) ==
LOC: LABWHC1 16:16
PROVIDERS: ATTEND Surgery Plastic and Reconstructive Surgery
DX: E66.01 Morbid (severe) obesity due to excess calories (principal); D50.8 Other iron deficiency anemias; K61.2 Anorectal abscess; K91.2 Postsurgical malabsorption, not elsewhere classified; E44.0 Moderate protein-calorie malnutrition; E44.1 Mild protein-calorie malnutrition; E45 Retarded development following protein-calorie malnutrition; E55.9 Vitamin D deficiency, unspecified; K74.1 Hepatic sclerosis; N19 Unspecified kidney failure; T56.894A Toxic effect of other metals, undetermined, initial encounter; K50.90 Crohn's disease, unspecified, without complications
CPT/HCPCS: 36415; 80053; 80061; 82306; 82525; 82607; 82728; 82746; 83036; 83540; 83550; 83735; 83970; 84100; 84134; 84255; 84425; 84443; 84590; 84630; 85027; 85610; 85730

== ENCOUNTER 2023-05-08 12:04 | Day surgery (SDC) | payer OTHER ==
[2023-05-05 11:08] VITALS: BMI 34.9
--- NOTE | 2023-05-08 09:52 | P.GSHP ---
History of Present Illness H&P Date: 05/08/23 CHIEF COMPLAINT: Cholecystitis HISTORY OF PRESENT ILLNESS: The patient is a 28-year-old female who presents with history of epigastric including right upper quadrant abdominal pain. She underwent diagnostic studies for her gallbladder. Separately her clinical picture was consistent with cholecystitis. Now she presents for surgical intervention. PAST MEDICAL HISTORY: Please see list PAST SURGICAL HISTORY: Please see list MEDICATIONS: Please see list ALLERGIES: Please see list SOCIAL HISTORY: Please see list FAMILY HISTORY: Please see list REVIEW OF ORGAN SYSTEMS: CONSTITUTIONAL: No reports of fevers or chills. HEENT: Denies any troubles with the vision or hearing. ENDOCRINE: No reports of hypothyroidism. No diabetes. RESPIRATORY: No recent pneumonias. CARDIOVASCULAR: Denies chest pain or palpitations GI: No blood in stools or constipation. MUSCULOSKELETAL: Has occasional joint pain including back pain. NEURO: No seizure disorders or headaches. No recent stroke. PSYCH: No depression or suicidal ideation. GENITOURINARY: No active blood in urine. No urinary hesitancy. HEMATOLOGIC: No personal or family history of DVTs or pulmonary emboli. SKIN: No skin cancer. PHYSICAL EXAM: VITAL SIGNS: Afebrile vital signs stable GENERAL: Well-developed pleasant in no acute distress. HEENT: No scleral icterus. Extraocular movements grossly intact. Moist buccal mucosa. NECK: Supple without lymphadenopathy. CHEST: Unlabored respirations. Equal bilateral excursions. CARDIOVASCULAR: Regular rate regular rhythm rhythm. Distal 2+ pulses. ABDOMEN: Soft, nondistended. Tender along the epigastrium and right upper quadrant. MUSCULOSKELETAL: No clubbing, cyanosis, or edema. NEURO: Cranial nerves II to XII within normal limits. No focal or lateralizing signs. PSYCH: Alert and oriented to person, place and time. SKIN: Well-perfused good skin turgor. ASSESSMENT: 1. Epigastric and right upper quadrant abdominal pain 2. Chronic cholecystitis 3. Symptomatic gallstones. PLAN: 1. Will need a robotic cholecystectomy possible open. Benefits and risks were described. 2. Heparin for DVT prophylaxis 5000 units. 3. Antibiotic prophylaxis. 4. CBC and CMP on day of procedure 5. Non-narcotic pre and post op pain management reviewed. 6. Indocyanine green for biliary imaging. Past Medical History Past Medical History: Sleep Apnea/CPAP/BIPAP Additional Past Medical History / Comment(s): "Pre-diabetic." No device use for Sleep Apnea. History of Any Multi-Drug Resistant Organisms: None Reported Past Surgical History: Adenoidectomy, Bariatric Surgery, Tonsillectomy Additional Past Surgical History / Comment(s): EGD. Sleeve gastrectomy 07-29-22 Past Anesthesia/Blood Transfusion Reactions: No Reported Reaction Past Psychological History: No Psychological Hx Reported Smoking Status: Never smoker Past Alcohol Use History: None Reported Past Drug Use History: None Reported - Past Family History Mother Family Medical History: No Reported History Medications and Allergies Home Medications Medication Instructions Recorded Confirmed Type Multivitamins, Thera [Multivitamin 1 tab PO DAILY 11/06/22 05/05/23 History (formulary)] Fish Oil/Dha/Epa [Fish Oil 1,200 1 each PO DAILY 05/05/23 05/05/23 History mg Fish Oil] Allergies Allergy/AdvReac Type Severity Reaction Status Date / Time No Known Allergies Allergy Verified 05/05/23 10:54
[~2023-05-08 12:04] MED LIST changes: -ACETAMINOPHEN TAB 500 MG TAB PO STA; -CHLORHEXIDINE GLUCONATE 15 ML CUP MUCOUS MEM PRN; -DEXAMETHASONE SOD PHOSPHATE 4 MG/ML 1 ML VIAL IV ONE; -HYDROmorphone 0.5 MG/0.5 ML SYRINGE IVP PRN; +INDOCYANINE GREEN 25 MG VIAL IV STA; +MIDAZOLAM 2 MG/2 ML VIAL IV PRN; -ONDANSETRON 4 MG/2 ML VIAL IVP ONE; -PANTOPRAZOLE 40 MG/10 ML VIAL IVP PRN; -SCOPOLAMINE 1 MG/72 HR PATCH TRANSDERM ONE; -droPERidol 5 MG/2 ML VIAL IVP ONE
[2023-05-08 12:46] VITALS: RESP 16
[2023-05-08] MEDS: LACTATED RINGERS 1,000 ML IV SCH (13:00)
[2023-05-08] MEDS: ONDANSETRON 4 MG/2 ML VIAL IVP ONE (13:05)
[2023-05-08] MEDS: DEXAMETHASONE SOD PHOSPHATE 4 MG/ML 1 ML VIAL IV ONE (13:05)
[2023-05-08] MEDS: HEPARIN SODIUM,PORCINE 5,000 UNIT/ML 1 ML VIAL SQ PRN (13:05)
[2023-05-08 13:33] LABS: Basophils # (A) 0.1 k/uL (0-0.2); Basophils % (A) 1 %; Eosinophils # (A) 0.2 k/uL (0-0.7); Eosinophils % (A) 1 %; HCT 44.1 % (34.0-46.0); HGB 14.6 gm/dL (11.4-16.0); Lymphocytes # (A) 3.3 k/uL (1.0-4.8); Lymphocytes % (A) 26 %; MCH 29.4 pg (25.0-35.0); MCHC 33.1 g/dL (31.0-37.0); MCV 88.9 fL (80.0-100.0); Mean Platelet Volume 8.3; Monocytes # (A) 0.5 k/uL (0-1.0); Monocytes % (A) 4 %; Neutrophils # (A) 8.8 k/uL (1.3-7.7); Neutrophils % (A) 68 %; Platelet Count 248 k/uL (150-450); RBC 4.96 m/uL (3.80-5.40)
[2023-05-08 13:40] LABS: ALT 62 U/L (4-34); African American GFR (CKD) >90 (>60 ml/min/1.73 sqM); Albumin 4.5 g/dL (3.5-5.0); Anion Gap 8 mmol/L; Blood Urea Nitrogen 18 mg/dL (7-17); Calcium 9.4 mg/dL (8.4-10.2); Carbon Dioxide 26 mmol/L (22-30); Chloride 105 mmol/L (98-107); Glucose 77 mg/dL (74-99); Non-African American GFR(CKD) >90 (>60 ml/min/1.73 sqM); Sodium 139 mmol/L (137-145); Total Bilirubin 0.9 mg/dL (0.2-1.3); Total Protein 7.5 g/dL (6.3-8.2)
[2023-05-08 13:45] LABS: Glucose,Whole Blood 72 mg/dL (70-110)
[2023-05-08] MEDS ORDERED: SUCCINYLCHOLINE CHLORIDE 200 MG/10 ML VIAL IV ONE (13:50)
[2023-05-08] MEDS ORDERED: ROCURONIUM 10 MG/ML (5 ML VIAL) IV ONE (13:50)
[2023-05-08] MEDS ORDERED: fentaNYL (PF) 50 MCG/ML 2 ML AMP ONE (13:50)
[2023-05-08] MEDS ORDERED: PROPOFOL 10 MG/ML 20 ML VIAL IV ONE (13:50)
[2023-05-08] MEDS ORDERED: KETAMINE HCL IN 0.9 % NACL 50 MG/5 ML SYRINGE ONE (13:50)
[2023-05-08] MEDS ORDERED: NEOSTIGMINE 1 MG/ML 10 ML VIAL ONE (13:50)
[2023-05-08] MEDS ORDERED: MIDAZOLAM 2 MG/2 ML VIAL ONE (13:50)
[2023-05-08] MEDS ORDERED: LIDOCAINE 1% INJ 10MG/ML (20 ML MDV) ONE (13:50)
[2023-05-08] MEDS ORDERED: GLYCOPYRROLATE 0.2 MG/ML 2 ML VIAL ONE (13:50)
[2023-05-08 13:52] LABS: AST 49 U/L (14-36); Potassium 4.9 mmol/L (3.5-5.1)
[2023-05-08 13:53] LABS: Alkaline Phosphatase 110 U/L (38-126)
[2023-05-08] MEDS: LIDOCAINE 2%-EPI 1:100,000 20 ML VIAL SQ ONE ×2 (14:19→14:22)
[2023-05-08 15:25] LABS: Glucose,Whole Blood 161 mg/dL (70-110)
[2023-05-08 15:31] VITALS: TEMP 97.1
[2023-05-08] MEDS: HYDROmorphone 0.5 MG/0.5 ML SYRINGE IVP PRN (15:42)
--- NOTE | 2023-05-08 16:04 | P.OP ---
Date of Procedure: 05/08/23 Description of Procedure: PREOPERATIVE DIAGNOSES: 1. Chronic cholecystitis 2. Right upper quadrant abdominal pain 3. Elevated liver enzymes 4. Obesity due to excess calories, BMI 33.8 5. Status post massive weight loss over 100 pounds 6. Status post sleeve gastrectomy 7. History of fatty liver disease 8. Gallbladder disorder POSTOPERATIVE DIAGNOSES: 1. Chronic cholecystitis 2. Right upper quadrant abdominal pain 3. Elevated liver enzymes 4. Obesity due to excess calories, BMI 33.8 5. Status post massive weight loss over 100 pounds 6. Status post sleeve gastrectomy 7. History of fatty liver disease 8. Gallbladder disorder OPERATION: 1. Robotic-assisted da Vivienne Xi laparoscopic cholecystectomy, multiport with FIREFLY ESTIMATED BLOOD LOSS: 5 mL. SPECIMENS REMOVED: (Gallbladder) COMPLICATIONS: None. Condition: stable Disposition: floor OPERATIVE FINDINGS: 1. Partially embedded intrahepatic gallbladder 2. [place] technique performed due to intrahepatic gallbladder 3. Moderate improvement of hepatomegaly INDICATIONS: The patient is a 28-year-old female who presents with elevated liver enzymes, right upper quadrant abdominal pain, gallbladder disorder, chronic cholecystitis. Surgical intervention with a robotic cholecystectomy was described at length including injury to the biliary tree, bleeding, infection, need for further surgery. Informed consent was obtained. Robotic assisted laparoscopic approach was described. Benefits and risks of the procedure including but not limited to bleeding, infection, injury to the biliary tree was described. Informed consent was obtained. DESCRIPTION OF PROCEDURE: Patient was brought to the operating room, placed in supine position. After general induction, the abdomen had been prepped and draped in standard sterile fashion. The robotic da Vivienne XI system was primed. After a timeout protocol was performed, the patient had been prepped and draped in standard sterile fashion. The patient was injected with indocyanine green. The robot was docked along the left lateral abdomen. The patient was reposi tioned in reverse Trendelenburg position. Please note prior to docking of the robot; however, a 5 mm 0 degrees laparoscopic trocar entry was performed along the left upper quadrant. The abdomen was insufflated to 15 mm Hg pressure which he tolerated well. Diagnostic laparoscopy demonstrated no injury to the small bowel or viscera. Next, two 8 mm robotic ports were placed along the right upper abdomen. The camera 8-mm port was maintained along the epigastrium. Another 8 mm port was placed along the left upper abdominal wall. Please note that the ports were placed at least 10 to 15 cm away from the target anatomy of the gallbladder. Using a grasper for arm 3, a grasper for arm 2, including hook cautery for arm 1, the robotic system was docked and primed as described. Instruments were interchanged by the painter assistant including hook cautery, Bovie cautery scissors and clip appliers. I had sat at the console. The gallbladder fundus was retracted over the dome of the liver. Initial a ttention was brought to the infundibulum which was gently retracted in the inferior lateral approach. A dome down technique using was performed from the gallbladder fundus to the infundibulum. PLASTIC clip appliers were used along the cystic duct with 3 clips placed. The hepatic fossa was completely dry. The hepatic fossa was checked for hemostasis. The robot was undocked. I re-scrubbed into the case. Using a 10 mm Endo Catch bag via the left upper quadrant incision, the specimen was removed from the abdominal cavity. All pneumoperitoneum instruments were evacuated from the abdominal cavity. The incisions were reapproximated using 4-0 Monocryl in an interrupted subcuticular fashion. Fascial defect at the left upper quadrant was closed using 0 Vicryl in [place]. Please note along the trocar sites, local anesthetic was placed as a field block prior to insertion of all instruments. The incisions were cleansed using hydrogen peroxide and normal saline. Dermabond was applied to the skin. An Optifoam dressing was placed over the drain site and left upper quadrant. At the end of the procedure needle, sponge, and instrument count had been verified correct by the assistant professor surgical technology. The patient was transferred to postanesthesia care unit in stable condition. Her family was updated along the findings including level of care. Plan - Discharge Summary Discharge Rx Participant: No New Discharge Prescriptions: New Simethicone 40 mg/0.6 ml Drops [Mylicon Drops] 40 mg PO Q6HR PRN #30 ml PRN Reason: Abdominal Distention Ibuprofen [Motrin] 600 mg PO Q8HR PRN #30 tab PRN Reason: Pain Acetaminophen Tab [Tylenol Tab] 1,000 mg PO Q6HR PRN #30 tablet PRN Reason: Pain Continue Fish Oil/Dha/Epa [Fish Oil 1,200 mg Fish Oil] 1 each PO DAILY Multivitamins, Thera [Multivitamin (formulary)] 1 tab PO DAILY Discharge Medication List Multivitamins, Thera [Multivitamin (formulary)] 1 tab PO DAILY 11/06/22 [History] Fish Oil/Dha/Epa [Fish Oil 1,200 mg Fish Oil] 1 each PO DAILY 05/05/23 [History] Acetaminophen Tab [Tylenol Tab] 1,000 mg PO Q6HR PRN #30 tablet 05/08/23 [Rx] Ibuprofen [Motrin] 600 mg PO Q8HR PRN #30 tab 05/08/23 [Rx] Simethicone 40 mg/0.6 ml Drops [Mylicon Drops] 40 mg PO Q6HR PRN #30 ml 05/08/23 [Rx] Follow up Appointment(s[facility] [place] [facility] - 05/14/23 2:00 pm Patient Instructions/Handouts: Laparoscopic Cholecystectomy (DC), Low Fat Diet (GEN) Activity/Diet/Wound Care/Special Instructions: Recommend low-fat diet for the next 2 days. No lifting over 10 pounds in 2 weeks until May 21July shower. No bath tub soaks for two weeks until May 21 Diet as tolerated. Use Tylenol, simethicone and ibuprofen or Aleve scheduled for the next 24-48 hours for best pain relief. Use ice along incisions for today to prevent swelling. Discharge Disposition: HOME SELF-CARE
[2023-05-08] MEDS ORDERED: ACETAMINOPHEN TAB 500 MG TAB ONE (16:19)
[2023-05-08] MEDS: ACETAMINOPHEN TAB 500 MG TAB PO ONE (16:21)
[2023-05-08] MEDS: IBUPROFEN 600 MG TAB PO ONE (16:21)
[2023-05-08 16:33] VITALS: BP 117/72; PULSE 71
== END 2023-05-08 17:27 | disposition home or self-care (01) ==
LOC: OR 12:04
PROVIDERS: ATTEND Surgery Plastic and Reconstructive Surgery
DX: K81.1 Chronic cholecystitis (principal); E66.09 Other obesity due to excess calories; K76.0 Fatty (change of) liver, not elsewhere classified; G47.30 Sleep apnea, unspecified; Z68.33 Body mass index [BMI] 33.0-33.9, adult; Z98.84 Bariatric surgery status; Z79.899 Other long term (current) drug therapy
CPT/HCPCS: 47562; S2900; 80053; 81025; 85025; 88304

== ENCOUNTER → 2024-03-31 | Outpatient (CLI) | payer OTHER ==
[2024-03-31 15:24] LABS: ALT 69 U/L (8-44); AST 43 U/L (13-35); Albumin 4.4 g/dL (3.8-4.9); Albumin/Globulin Ratio 1.69 Ratio (1.60-3.17); Alkaline Phosphatase 103 U/L (41-126); BUN/Creat Ratio 31.17 Ratio (12.00-20.00); Blood Urea Nitrogen 18.7 mg/dL (9.0-27.0); Calcium 9.5 mg/dL (8.7-10.3); Carbon Dioxide 23.5 mmol/L (21.6-31.8); Chloride 105 mmol/L (96-109); Globulin 2.6 g/dL (1.6-3.3); Glucose 89 mg/dL (70-110); LDH 154 U/L (120-246); Potassium 4.2 mmol/L (3.5-5.5); Sodium 139 mmol/L (135-145); Total Bilirubin 0.3 mg/dL (0.3-1.2)
[2024-03-31 15:38] LABS: Basophils # (A) 0.06 X 10*3/uL (0.00-0.10); Basophils % (A) 0.5 %; Eosinophils # (A) 0.13 X 10*3/uL (0.04-0.35); Eosinophils % (A) 1.2 %; HCT 42.6 % (37.2-46.3); HGB 14.4 g/dL (12.0-15.0); Lymphocytes # (A) 2.81 X 10*3/uL (0.90-5.00); Lymphocytes % (A) 25.2 %; MCH 28.6 pg (27.0-32.0); MCHC 33.8 g/dL (32.0-37.0); MCV 84.5 FL (80.0-97.0); Mean Platelet Volume 11.1 FL (9.5-12.2); Monocytes # (A) 0.63 X 10*3/uL (0.20-1.00); Monocytes % (A) 5.7 %; NRBC Per 100 WBC 0 X 10*3/uL (0.00-0.01); Neutrophils # (A) 7.46 X 10*3/uL (1.80-7.70); Platelet Count 233 X 10*3/uL (140-440); RBC 5.04 X 10*6/uL (4.10-5.20); RDW 12.8 % (11.5-14.5); WBC 11.13 X 10*3/uL (4.50-10.00)
[2024-04-01 11:25] LABS: Chol/HDL Ratio 3.65 Ratio; LDL Cholesterol,Calculated 86.4 mg/dL (0.0-131.0)
[2024-04-02 04:58] LABS: Vitamin E (Alpha Tocopherol) 1505 ug/dL (500-1800)
== END | disposition home or self-care (01) ==
LOC: LABWHC1 11:13
PROVIDERS: ATTEND Internal Medicine
DX: Z00.00 Encounter for general adult medical examination without abnormal findings (principal); K75.81 Nonalcoholic steatohepatitis (NASH); Z98.84 Bariatric surgery status
CPT/HCPCS: 36415; 80053; 80061; 82525; 82533; 83090; 83615; 84255; 84446; 85025